=== PATIENT | female | born 1945 | race Caucasian/White ===

== ENCOUNTER 2017-06-23 12:20 | Emergency (ER) | payer MEDICARE, OTHER ==
--- NOTE | 2017-06-23 12:42 | EDM.PDOC ---
ED HPI GENERAL MEDICAL PROBLEM - General Source of Information: Reports: Patient History Limitations: Reports: No Limitations Headache Pain Score (Numeric/FACES): 6 - General Chief Complaint: Head Injury Stated Complaint: FACIAL INJURIES SUSTAINED FROM FALL Time Seen by Provider: 06/23/17 12:41 - History of Present Illness INITIAL COMMENTS - FREE TEXT/NARRATIVE: Patient is a 72-year-old female presents ED complaining of left-sided facial pain and cervical pain secondary to a fall earlier today. 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 Patient was sitting in her lift chair and accidentally dropped the remote on the floor. Patient was attempting to grab it and fell forward hitting her face. There was no loss of consciousness. Patient remembers all events prior and after. She was assisted up by her via lift belt. She complains of generalized headache described as mild to moderate in nature. No new vision changes. She does have decreased range of motion of the neck secondary to pain. Denies any chest pain, shortness of breath, nausea/vomiting, numbness or tingling to extremities, abdominal pain, pain to the upper and lower extremities, or any additional complaints. (Charlie Lafleur) - Related Data Allergies Allergy/AdvReac Type Severity Reaction Status Date / Time No Known Allergies Allergy Verified 06/23/17 12:39 Home Meds: Home Meds Albuterol [Ventolin HFA] 1 puff INH Q4HR PRN 06/23/17 [History] Amantadine [Symmetrel] 100 mg PO BID 06/23/17 [History] Aspirin [Halfprin] 81 mg PO DAILY 06/23/17 [History] Carboxymethylcellulose Sodium [Refresh Tears] 1 drop EYEBOTH TID 06/23/17 [ History] [place]/Min Oil/Mitali/Wool Alcoh [Eucerin Creme] 1 applic TOP DAILY 06/23/17 [ History] Latanoprost [Xalatan 0.005% Ophth Soln] 1 drop EYEBOTH DAILY 06/23/17 [History] Lisinopril 40 mg PO DAILY 06/23/17 [History] Meloxicam [Meloxicam] 7.5 mg PO DAILY 06/23/17 [History] Metoprolol Succinate 50 mg PO DAILY 06/23/17 [History] Nitrofurantoin [place]/Macrocryst [Macrobid] 100 mg PO DAILY 06/23/17 [History] Omeprazole 20 mg PO DAILY 06/23/17 [History] Triamcinolone Acetonide [Triamcinolone Acetonide 0.1% Crm] 1 applicful TOP ASDIRECTED PRN 06/23/17 [History] Venlafaxine [Effexor] 37.5 mg PO DAILY 06/23/17 [History] amLODIPine [Norvasc] 5 mg PO DAILY 06/23/17 [History] traMADol [Ultram] 50 mg PO Q8H PRN 06/23/17 [History] ED ROS GENERAL - Review of Systems Review Of Systems: ROS reveals no pertinent complaints other than HPI. ED EXAM, HEAD INJURY - Physical Exam Exam: See Below Exam Limited By: No Limitations General Appearance: Alert, WD/WN, No Apparent Distress Head: Other (Approximately 3 cm deep laceration to the left eyebrow with mild swelling to the left forehead extending down to her mandible. Skin tears present. Minimal bleeding. Mild tenderness noted with palpation of the zygomatic arch, maxilla, and also mandible. She has no trismus present.) Nexus Criteria: No: Evidence of Intoxication, Altered Level of Consciousness, Focal Neurological Deficit, Painful Distraction Injuries Eyes: Bilateral Eye: EOMI, PERRL Ears: Normal External Exam, Hearing Grossly Normal Nose: Normal Inspection, Normal Mucousa, No Blood Throat/Mouth: Normal Voice, No Airway Compromise Neck: Painful Range of Motion, Spinous Processes Tender, Tender Midline Respiratory: No Respiratory Distress, Lungs Clear, Normal Breath Sounds, No Accessory Muscle Use, Chest Non-Tender Cardiovascular: Normal Peripheral Pulses, Regular Rate, Rhythm GI/Abdominal Exam: Normal Bowel Sounds, Soft, Non-Tender, No Organomegaly, No Distention Back Exam: Normal Inspection Extremities: Normal Inspection, Normal Range of Motion, Non-Tender, Normal Capillary Refill, Pedal Edema (Trace bilateral) Neurologic: day guard II-XII nml As Tested, No Motor/Sensory Deficits, Alert, Normal Mood/Affect, Oriented x 3 Skin: Normal Color, Warm/Dry ED LACERATION/WOUND & DERRICK PROC - Laceration/Wound Repair Left Brow Lac/wound length in cm: 3.0 Appearance: Subcutaneous, Clean Distal NVT: Neuro & Vascular Intact Anesthetic Type: Local Local Anesthesia - Lidocaine (Xylocaine): 1% with EPI Local Anesthetic Volume: 4cc Skin Prep: Chlorhexidine (Hibiciens), Saline, Sterile Drape Exploration/Debridement/Repair: Wound Explored, In a Bloodless Field, Explored to Base, No Foreign Material Found Closed with: Sutures Suture Size: other (6.0) # of Sutures: 8 Suture Type: Prolene, Interrupted, Simple Drain Placement: No Sterile Dressing Applied: Nurse Tetanus Status Addressed: Yes Complications: No Left Face Lac/wound length in cm: 6 Appearance: Superficial, Clean Distal NVT: Neuro & Vascular Intact Exploration/Debridement/Repair: Wound Explored, In a Bloodless Field, Explored to Base, No Foreign Material Found Closed with: Steri-Strips Drain Placement: No Sterile Dressing Applied: Nurse Tetanus Status Addressed: Yes Complications: No Course - Vital Signs Last Recorded V/S: Last Vital Signs Temp 98.7 F 06/23/17 12:33 Pulse 68 06/23/17 16:00 Resp 16 06/23/17 16:00 BP 166/91 H 06/23/17 16:00 Pulse Ox 98 06/23/17 16:00 - Orders/Labs/Meds Labs: Laboratory Tests 06/23/17 Range/Units 15:20 Urine Color Light yellow (Yellow) Urine Appearance Cloudy H (Clear) Urine pH 7.0 (5.0-8.0) Ur Specific [place] 1.025 (1.005-1.030) Urine Protein Negative (Negative) Urine Glucose (UA) Negative (Negative) Urine Ketones Negative (Negative) Urine Occult Blood Negative (Negative) Urine Nitrite Negative (Negative) Urine Bilirubin Negative (Negative) Urine Urobilinogen 0.2 (0.2-1.0) Ur Leukocyte Esterase 1+ H (Negative) Urine RBC 0-5 (0-5) /hpf Urine WBC 10-20 H (0-5) /hpf Ur Epithelial Cells 0-5 (0-5) /hpf Urine Bacteria Many H (FEW) /hpf Urine Mucus Not seen (FEW) /hpf Meds: Medications Discontinued Medications Generic Name Dose Route Start Last Admin Trade Name Freq PRN Reason Stop Dose Admin Clotrimazole 1 gm 06/23/17 15:36 06/23/17 16:10 Clotrimazole 1% VAG 06/23/17 15:37 Not Given ONETIME ONE Diphtheria/Tetanus/Acell Pertussis 0.5 ml 06/23/17 14:04 06/23/17 15:00 Adacel IM 06/23/17 14:05 0.5 ml .ONCE ONE Administration Lidocaine/Epinephrine 20 ml 06/23/17 12:56 06/23/17 13:34 Xylocaine 1% With Epinephrine 1:100,000 INJECT 06/23/17 12:57 20 ml ONETIME ONE Administration - Re-Assessments/Exams Free Text/Narrative Re-Assessment/Exam: Will obtain CT of the cervical spine, head, maxillofacial bones without contrast. Ordered lidocaine with epi 1% for laceration closure. CT of the head impression: Minimal sinus findings which are felt to be incidental. Mild senescent changes as noted above. No acute intracranial abnormality is identified. 06/23/17 14:46 CT of the cervical spine impression: Diffuse degenerative changes noted above. Nothing acute is appreciated on CT study of the cervical spine. CT of the maxillofacial bones impression: Incidental findings as noted above. No acute bone facial bone fractures seen. Lacerations closed with no complications. We'll discharge patient home with instructions as documented. 06/23/17 15:04 per nursing staff patient to get up and go to the bathroom and the urine was foul-smelling. Patient is on Macrobid every day. Concerned that patient has a UTI that is not resolving. Will obtain UA via in and out catheter. Cultures will be obtained. 06/23/17 16:08 UA is positive for leukocyte Estrace 1+, urine wbc's 10-20, urine bacteria many. Urine culture has been obtained. Will hold off on starting any new antibiotics for urinary tract infection until culture comes back. Patient will be notified with treatment plan. Discharge instructions as documented. (Charlie Lafleur) Free Text/Narrative Re-Assessment/Exam: 06/26/17 11:42 Her urine culture is growing out E-coli susceptible to all the antibiotics tested. I called the patient to let her know and I will call in a prescription for macrobid 2 times per day for 5 days. (Landon Galvan) Departure - Departure Time of Disposition: 14:57 Condition: Good - Departure Disposition: Home, Self-Care 01 Clinical Impression: Cervical pain (neck), Yeast infection involving the vagina and surrounding area Facial trauma Qualifiers: Encounter type: initial encounter Qualified Code(s): S09.93XA - Unspecified injury of face, initial encounter Face lacerations Qualifiers: Encounter type: initial encounter Qualified Code(s): S01.81XA - Laceration without foreign body of other part of head, initial encounter Headache Qualifiers: Headache type: unspecified Headache chronicity pattern: acute headache Intractability: not intractable Qualified Code(s): R51 - Headache UTI (urinary tract infection) Qualifiers: Urinary tract infection type: site unspecified Hematuria presence: without hematuria Qualified Code(s): N39.0 - Urinary tract infection, site not specified - Discharge Information Instructions: Head Injury, Adult, [id number] Referrals: Darline Caal PA [Primary Care Provider] - Forms: ED Department Discharge Additional Instructions: As discussed CT of the head, neck, and facial bones did not reveal any acute bony abnormalities. Degenerative changes noted. Laceration of the left eyebrow closed with simple sutures. Sutures come out and approximate 7 days. Cleanse site twice daily with soap and water, pat dry, reapply triple antibiotic ointment, and dressing. Keep area clean and dry. Steri-Strips to the superficial laceration will follow up on their own accord. Follow-up with a provider at [facility], [place], operated by [facility] and [place] to have the sutures removed free of charge. Apply ice to affected area as needed. Utilize Tylenol and ibuprofen in alternating fashion for pain. Return to the ED for any new or worsening symptoms. In addition UA did reveal findings concerning for infection. Culture has been obtained. No treatment will be started until urine culture determines what bacteria is present. Continue taking the Macrobid as prescribed until told otherwise. In addition apply Lamisil to the vaginal area twice a day for the next 10 days. Keep area clean and dry. Follow-up with PCP in the next week for reevaluation.
[2017-06-23] MEDS ORDERED: Lidocaine 1% with EPINEPHrine 1:100,000 20 ML MDV INJECT ONE (12:56)
--- NOTE | 2017-06-23 13:57 | CT ---
CT facial bones Technique: Multiple axial sections through the facial bones were obtained. Reconstructed coronal and sagittal images were reviewed. Findings: Slight mucosal thickening is seen within the ethmoid and left maxillary sinus. No air-fluid levels are seen within the paranasal sinuses. Degenerative change is noted within the temporomandibular joints. No facial bone fracture is identified. Impression: 1. Incidental findings as noted above. No acute facial bone fracture is seen. Diagnostic code #1
--- NOTE | 2017-06-23 13:59 | CT ---
Head CT Technique: Multiple axial sections through the brain were obtained. Intravenous contrast was not utilized. Comparison: Previous head CT study of 10/31/13. Findings: Ventricles along the basal cisterns and sulci with convexities are moderately prominent. Minimal diminished density within the periventricular white matter is seen compatible with small vessel ischemic demyelination change. No other abnormal parenchymal densities are seen. No evidence of intracranial hemorrhage. No midline shift or mass effect is seen. Bone window settings were reviewed which shows no acute calvarial abnormality. Mild mucosal thickening is seen within the ethmoid sinuses. Impression: 1. Minimal sinus findings which are felt to be incidental. 2. Mild senescent changes as noted above. 3. No acute intracranial abnormality is identified. Diagnostic code #2
[2017-06-23] MEDS ORDERED: Diphtheria,Pertussis(Acell),Tetanus Vaccine 0.5 ML SDV IM ONE (14:04)
--- NOTE | 2017-06-23 14:11 | CT ---
CT cervical spine Technique: Multiple axial sections were obtained from above C1 inferiorly to the bottom of T1. Reconstructed sagittal and coronal images were obtained. Findings: Severe disc space narrowing is noted at C4-5 through C6-7. Anterior osteophytes seen at these same levels. Posterior osteophytes are seen at these same level as well as mild posterior osteophytes at C3-4. Degenerative change is noted between the dens anterior arch of C1. Mild scattered degenerative change is seen within the apophyseal joints. Severe left-sided neural foraminal stenosis noted at L3-4. Severe left-sided neural foraminal stenosis noted C4-5 on the left side with mild right-sided neural foraminal stenosis noted on the right side. Moderate right-sided neural foraminal stenosis noted in the right side at C5-6. Other neural foramina are felt to be patent. No abnormal subluxation is seen. No fracture is seen. Diffuse degenerative spurring is seen within the uncovertebral joints throughout the cervical spine. Impression: 1. Diffuse degenerative change as noted above. 2. Nothing acute is appreciated on CT study of the cervical spine. Diagnostic code #2
[2017-06-23] MEDS ORDERED: Clotrimazole 1% Vaginal Crm 45 GM Tube VAG ONE (15:36)
[2017-06-23 18:32] VITALS: BP 166/91
== END 2017-06-23 16:20 | disposition home or self-care (01) ==
LOC: JD.ED 12:20
DX: S01.81XA Laceration without foreign body of other part of head, initial encounter (principal); N39.0 Urinary tract infection, site not specified; B37.3 Candidiasis of vulva and vagina; Z79.82 Long term (current) use of aspirin; Z79.899 Other long term (current) drug therapy; Z23 Encounter for immunization; W19.XXXA Unspecified fall, initial encounter
CPT/HCPCS: 12013; 70450; 70486; 72125; 81001; 87086; 87088; 87186; 90471; 90715; 99285; P9612; 12015; 12032; 99284

== ENCOUNTER 2017-12-22 20:25 | Emergency (ER) | payer MEDICARE, OTHER ==
[2017-12-22 20:31] VITALS: BP 161/101
--- NOTE | 2017-12-22 20:55 | EDM.PDOC ---
ED HPI GENERAL MEDICAL PROBLEM - General Chief Complaint: Respiratory Problem Stated Complaint: CHOKING Time Seen by Provider: 12/22/17 20:39 Source of Information: Reports: Patient History Limitations: Reports: No Limitations - History of Present Illness INITIAL COMMENTS - FREE TEXT/NARRATIVE: Patient is a 72 y/o female with history of progressive supra nuclear palsy. Patient has issues with her vision, coordination, strength, and swallowing. Patient has intermittent issues with choking on food normally able to cough it up. states the patient was eating popcorn and started to choke. She was unable to get the popcorn out and thus prompted evaluation in the E.D. Patient has had the sensation of food in the back of her throat. She as drooling with driving to the E.D. She denies any pain to her throat, SOB, cp, or any additional complaints. Patients vital signs are stable. - Related Data Allergies Allergy/AdvReac Type Severity Reaction Status Date / Time No Known Allergies Allergy Verified 06/23/17 12:39 Home Meds: Home Meds Amantadine [Symmetrel] 100 mg PO BID 06/23/17 [History] Aspirin [Halfprin] 81 mg PO DAILY 06/23/17 [History] Carboxymethylcellulose Sodium [Refresh Tears] 1 drop EYEBOTH TID 06/23/17 [ History] [place]/Min Oil/Mitali/Wool Alcoh [Eucerin Creme] 1 applic TOP DAILY 06/23/17 [ History] Latanoprost [Xalatan 0.005% Ophth Soln] 1 drop EYEBOTH DAILY 06/23/17 [History] Lisinopril 40 mg PO DAILY 06/23/17 [History] Metoprolol Succinate 50 mg PO DAILY 06/23/17 [History] Venlafaxine [Effexor] 37.5 mg PO DAILY 06/23/17 [History] amLODIPine [Norvasc] 5 mg PO DAILY 06/23/17 [History] Lansoprazole [Prevacid] 1 tab PO DAILY 12/22/17 [History] Loratadine [Claritin] 10 mg PO DAILY PRN 12/22/17 [History] Timolol [Betimol 0.5% Ophth Soln] 1 drop EYEBOTH DAILY 12/22/17 [History] Past Medical History Cardiovascular History: Reports: Hypertension Respiratory History: Reports: Sleep Apnea, SOB Gastrointestinal History: Reports: None Genitourinary History: Reports: Urinary Incontinence 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 MAN 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: 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: Musculoskeletal History: Reports: Fracture Neurological History: Reports: Other (See Below) Other Neuro History: progressive supranuclear palsy- form of parkinson's - Past Surgical History GI Surgical History: Reports: Colonoscopy Musculoskeletal Surgical History: Reports: Knee Replacement Other Musculoskeletal Surgeries/Procedures:: arm surgery; bilateral knkee replacement Social & Family History - Family History Family Medical History: Noncontributory - Tobacco Use Smoking Status *Q: Never Smoker - Caffeine Use Caffeine Use: Reports: Coffee - Recreational Drug Use Recreational Drug Use: No ED ROS GENERAL - Review of Systems Review Of Systems: ROS reveals no pertinent complaints other than HPI. Constitutional: Reports: No Symptoms HEENT: Reports: No Symptoms Respiratory: Reports: No Symptoms Cardiovascular: Reports: No Symptoms GI/Abdominal: Reports: No Symptoms Musculoskeletal: Denies: Neck Pain ED EXAM, GENERAL - Physical Exam Exam: See Below Exam Limited By: Other (patient is able to speak. she is alert and orientedx3.) General Appearance: Alert, WD/WN, No Apparent Distress Ears: Hearing Grossly Normal Nose: Normal Inspection Throat/Mouth: Normal Inspection, Normal Oropharynx, Normal Voice, No Airway Compromise, Other (no popcorn noted to the posterior pharynx. gag reflex noted with application of tongue depressor) Neck: Normal Inspection, Supple, Non-Tender Respiratory/Chest: No Respiratory Distress, Lungs Clear, Normal Breath Sounds, No Accessory Muscle Use Cardiovascular: Normal Peripheral Pulses, Regular Rate, Rhythm Peripheral Pulses: 4+: Radial (R) GI/Abdominal: Normal Bowel Sounds, Soft, Non-Tender, No Organomegaly, No Distention Neurological: Alert, Oriented, Normal Cognition, Slow to Respond (normal) Psychiatric: Normal Affect, Normal Mood, Other (no change in mentation per . ) Skin Exam: Warm, Dry Course - Vital Signs Last Recorded V/S: Last Vital Signs Temp 97.0 F 12/22/17 20:30 Pulse 75 12/22/17 20:30 Resp 20 12/22/17 20:30 BP 161/101 H 12/22/17 20:30 Pulse Ox 98 12/22/17 20:30 - Orders/Labs/Meds Orders: Active Orders 24 hr Category Date Time Status Peripheral IV Care [RC] . DIRECTED Care 12/22/17 22:53 Inactive Meds: Medications Discontinued Medications Generic Name Dose Route Start Last Admin Trade Name Jeetq PRN Reason Stop Dose Admin Lorazepam 0.25 mg 12/22/17 22:53 Ativan IVPUSH 12/22/17 22:54 ONETIME ONE Lorazepam 0.5 mg 12/22/17 22:53 12/22/17 23:02 Ativan IM 12/22/17 22:54 0.5 mg ONETIME ONE Administration Sodium Chloride 10 ml 12/22/17 22:52 Saline Flush FLUSH ASDIRECTED PRN Keep Vein Open - Re-Assessments/Exams Free Text/Narrative Re-Assessment/Exam: Patients vitals are stable. She has no findings concerning for upper airway obstruction. When asked during examination and she has a sensation of food or saliva in her throat she says saliva. There is no pain present. No abnormalities noted on examination of the posterior pharynx. She is moving air with no concerning findings. She has no drooling with examination. She is able to swallow her saliva. No additional testing is required at this time. I did speak to Dr. Rasmussen. He does recommend close follow-up with PCP to which they can arrange evaluation by pulmonology to have a bronchoscopy if required. 2114 CXR obtained. Blouse buttons present. Will have detention remove the blouse and retake cxr. Patient did swallow some water with only minimal drooling. No choking present. 12/22/17 21:55CXR reviewed with Dr. Rasmussen. NO findings of atelectasis or obvious foreign object. Final interpretation is pending. Patient has been drinking water with no drooling. Patient's O2 sats did drop down to 60% without a good pleth. Patients O2 sats with 2lpm is 99 %. Will have nursing staff turn off o2. She was 95% on room air with admission. 2199 Patient was drinking water became very anxious complaining of food in the back of her throat. Blood pressure elevated with normal 02 sats on room air. She is moving good air. I did have nursing staff suction the posterior pharynx. 12/22/17 22:[address] West suggests transfer to [place] for ENT consultation. After suctioning of the posterior pharynx. Patient's blood pressure was 140/70 with O2 sats of 96%. Patients heart rate is 87. 12/22/17 22:56 on reexamination patient is not grunting O2 sats are 95% on room air pulse is 84. She does not appear in acute distress. Speaking with the . I advised her that that the patient does not have any upper airway obstruction. There is no whistling sound concerning for stridor. Patient remains to have episodes of increased anxiety, holds her breath, BP elevates, and O2 sats drop. Will go ahead with IM injection of Ativan 0.5 mg. See if this will help with her anxiety. Again upon admission to the ED patient was not hypertensive. With her increased anxiety grunting and clenching her fist patient is hypertensive. at [address] Nice ER doc at [facility]. He does not think ENT will come in to evaluate the patient. She does not sound like she has a upper airway obstruction. Agrees with plan for ativan to relax patient. Requests call back if any issues. 12/23/17 00:14 Patient resting comfortably in bed. Blood pressure 169/103 with a heart rate of 79 SPO2 of 94% on room air. She has no findings concerning for upper extraction. No stridor, no grunting, no drooling, or any concerning findings. 12/23/17 00:30 on reexamination patient resting comfortably. Blood pressure 175/ 90, heart rate 79, SPO2 96% on room air. When asking the patient if she has any food sensation to the back of her throat she says no. I asked the patient if she is ready to go home and she says yes. There is no stridor, grunting, or drooling. Patient is controlling her saliva with no issues. is ready to go home. Return precautions discussed with him and other family members present. Departure - Departure Time of Disposition: 20:58 Disposition: Home, Self-Care 01 Condition: Good Clinical Impression: Choking episode - Discharge Information Instructions: Choking, Adult Referrals: Darline Caal PA [Primary Care Provider] - Forms: ED Department Discharge Additional Instructions: Please followup with PCP in two days for reevaluation and to discuss the need for bronchoscopy. Suspect you did not aspirate the popcorn but cannot be sure of this. Continue to monitor for any new or worsening symptoms. If patient develops any concerning symptoms please return to the E.D. Call 911 if patient develops any respiratory issues and needs immediate care. - My Orders Last 24 Hours: My Active Orders 12/22/17 22:53 Peripheral IV Care [RC] . DIRECTED - Assessment/Plan Last 24 Hours: My Active Orders 12/22/17 22:53 Peripheral IV Care [RC] . DIRECTED
[2017-12-22] MEDS ORDERED: Sodium Chloride 0.9% 10 ML Syringe FLUSH PRN (22:52)
[2017-12-22] MEDS ORDERED: LORazepam 2 MG/ML SDV IVPUSH ONE (22:53)
[2017-12-22] MEDS ORDERED: LORazepam 2 MG/ML SDV IM ONE (22:53)
--- NOTE | 2017-12-23 08:11 | CR ---
Chest: Portable view of the chest was obtained. Comparison: Previous chest x-ray of 10/31/13. Tortuous thoracic aorta is seen. Heart size appears within normal limits. Lungs are clear. Bony structures are grossly intact. Impression: 1. Nothing acute is seen on portable chest x-ray. Diagnostic code #1
== END 2017-12-23 00:45 | disposition home or self-care (01) ==
LOC: SUPCPDRO 20:25 → JD.ED 20:25
DX: R09.89 Other specified symptoms and signs involving the circulatory and respiratory systems (principal); I10 Essential (primary) hypertension; Z79.82 Long term (current) use of aspirin; Z79.899 Other long term (current) drug therapy
CPT/HCPCS: 71045; 96372; 99283; J2060

== ENCOUNTER 2018-08-27 15:16 | Inpatient (IN) | payer MEDICARE, OTHER ==
[2018-08-27] MEDS ORDERED: Sodium Chloride 0.9% 1,000 ML IV ONE ×3 (16:26→18:49)
[2018-08-27] MEDS ORDERED: Sodium Chloride 0.9% 10 ML Syringe FLUSH PRN (16:26)
[2018-08-27] MEDS ORDERED: Ondansetron 4 MG/2 ML SDV IVPUSH ONE (16:32)
[2018-08-27] MEDS ORDERED: cefTRIAXone 2 GM in Sodium Chloride 0.9% 100 ML IV STA (17:26)
--- NOTE | 2018-08-27 19:05 | EDM.PDOC ---
ED HPI GENERAL MEDICAL PROBLEM - General Chief Complaint: Gastrointestinal Problem Stated Complaint: VOMITING Time Seen by Provider: 08/27/18 16:05 Source of Information: Reports: Family History Limitations: Reports: Physical Impairment - History of Present Illness INITIAL COMMENTS - FREE TEXT/NARRATIVE: 73-year-old female presents with her and her daughter for evaluation treatment of vomiting. Patient has a past mental history of progressive supranuclear palsy, she is unable to provide any reliable history. History is obtained from her and her daughter. Patient [place] outside [facility]. Reportedly the patient started feeling unwell yesterday. Vomited one time yesterday, has not vomited all today. Also reports a cough and states that she has felt warm but did not check her temperature. She has been diaphoretic. No diarrhea. Reportedly she is not complaining of anything. She is more weak than normal. She is unable to walk and normally transfers with a gait belt and uses a wheelchair. They have appreciated that she is more weak and has difficulty standing on her own. Reportedly she had swallow, labored breathing last night. Family denies any recent falls. patient has a history of difficulty with swallowing. She normally drinks thickened liquids and soft foods. They report that she has not been eating or drinking as much is normal. She had only a small amount of boost and a few bites of applesauce today. Patient is a DNR, DNI. Primary care provider is Darline Caal. Abdomen Pain Score (Numeric/FACES): 4 - Related Data Allergies Allergy/AdvReac Type Severity Reaction Status Date / Time wheat Allergy Cannot Verified 07/20/18 09:14 Remember Home Meds: Home Meds Aspirin [Halfprin] 81 mg PO DAILY 06/23/17 [History] Carboxymethylcellulose Sodium [Refresh Tears] 1 drop EYEBOTH TID 06/23/17 [ History] [place]/Min Oil/Mitali/Wool Alcoh [Eucerin Creme] 1 applic TOP DAILY 06/23/17 [ History] Latanoprost [Xalatan 0.005% Ophth Soln] 1 drop EYEBOTH BEDTIME 06/23/17 [History ] Lisinopril 40 mg PO DAILY 06/23/17 [History] Metoprolol Succinate 50 mg PO DAILY 06/23/17 [History] Venlafaxine [Effexor] 37.5 mg PO DAILY 06/23/17 [History] Timolol [Betimol 0.5% Ophth Soln] 1 drop EYEBOTH DAILY 12/22/17 [History] Amantadine [Symmetrel 50 MG/5 ML Soln] 10 ml PO Q12H 08/27/18 [History] Past Medical History Cardiovascular History: Reports: Hypertension Respiratory History: Reports: Sleep Apnea, SOB Gastrointestinal History: Reports: None Genitourinary History: Reports: Urinary Incontinence 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: Musculoskeletal History: Reports: Fracture Neurological History: Reports: Other (See Below) Other Neuro History: progressive supranuclear palsy- form of parkinson's - Past Surgical History GI Surgical History: Reports: Colonoscopy Musculoskeletal Surgical History: Reports: Knee Replacement Other Musculoskeletal Surgeries/Procedures:: arm surgery; bilateral knkee replacement Social & Family History - Family History Family Medical History: Noncontributory - Tobacco Use Smoking Status *Q: Never Smoker - Caffeine Use Caffeine Use: Reports: None - Recreational Drug Use Recreational Drug Use: No ED ROS GENERAL - Review of Systems Review Of Systems: See Below Constitutional: Reports: Weakness, Decreased Appetite. Denies: Fever Respiratory: Reports: Cough GI/Abdominal: Reports: Vomiting. Denies: Diarrhea ED EXAM, GI/ABD - Physical Exam Exam: See Below Exam Limited By: No Limitations General Appearance: Alert, No Apparent Distress, Other (chronically ill appearing) Ears: Normal External Exam Nose: Normal Inspection Throat/Mouth: Normal Inspection, Other (dry lips and dry mucus membranes) Respiratory/Chest: No Respiratory Distress, Crackles (bilateral lung bases) Cardiovascular: Normal Peripheral Pulses, Regular Rate, Rhythm, No Murmur GI/Abdominal Exam: Soft, Non-Tender Neurological: Alert Skin Exam: Dry, Increased Warmth EKG INTERPRETATION EKG Date: 08/27/18 Time: 16:41 Rhythm: NSR Rate (Beats/Min): 96 Riddle: Normal P-Wave: Present QRS: Normal ST-T: Normal QT: Normal EKG Interpretation Comments: NSR at 96 bpm. No acute changes. Reviewed by myself and Dr. Poe. Course - Vital Signs Last Recorded V/S: Last Vital Signs Temp 98.0 F 08/27/18 15:50 Pulse 98 08/27/18 15:50 Resp 20 08/27/18 15:50 BP 129/85 01/05/19 15:50 Pulse Ox 95 08/27/18 15:50 - Orders/Labs/Meds Orders: Active Orders 24 hr Category Date Time Status Cardiac Monitoring [RC] . DIRECTED Care 08/27/18 16:31 Active EKG Documentation Completion [RC] ASDIRECTED Care 08/27/18 16:31 Active Peripheral IV Care [RC] . DIRECTED Care 08/27/18 16:30 Active Chest 1V Frontal [CR] Stat Exams 08/27/18 16:31 Taken CULTURE BLOOD [BC] Stat Lab 08/27/18 16:45 Received CULTURE BLOOD [BC] Stat Lab 08/27/18 16:55 Received CULTURE URINE [RM] Stat Lab 08/27/18 18:20 Received Sodium Chloride 0.9% [Saline Flush] Med 08/27/18 16:26 Active 10 ml FLUSH ASDIRECTED PRN Blood Culture x2 Reflex Set [OM.PC] Stat Oth 08/27/18 16:26 Ordered Peripheral IV Insertion Adult [OM.PC] Routine Oth 08/27/18 16:25 Ordered EKG 12 Lead [EK] Stat Ther 08/27/18 16:31 Ordered Medication Orders Acetaminophen (Tylenol) 650 mg PO Q6H PRN PRN Reason: Pain/Fever Albuterol (Proventil Neb Soln) 2.5 mg NEB Q4HRRT PRN PRN Reason: Shortness of Breath Albuterol/Ipratropium (Duoneb 3.0-0.5 Mg/3 Ml) 3 ml NEB QIDRT [place] Amantadine HCl (Symmetrel 50 Mg/5 Ml Soln) 100 mg PO Q12H [facility] Artificial Tears (Refresh Liquigel 1%) 0 ml EYEBOTH TID [facility] Last Admin: 08/27/18 20:56 Dose: 1 drop Aspirin (Halfprin) 81 mg PO DAILY [facility] Enoxaparin Sodium (Lovenox) 40 mg SUBCUT Q24H [facility] Last Admin: 08/27/18 20:56 Dose: 40 mg Azithromycin 500 mg/ Sodium (Chloride) 250 mls @ 250 mls/hr IV Q24H [facility] Ceftriaxone Sodium 2 gm/ (Sodium Chloride) 100 mls @ 200 mls/hr IV Q24H [facility] Sodium Chloride (Normal Saline) 1,000 mls @ 150 mls/hr IV ASDIRECTED [facility] Stop: 08/28/18 05:00 Last Admin: 08/27/18 21:09 Dose: 150 mls/hr Sodium Chloride (Normal Saline) 1,000 mls @ 75 mls/hr IV ASDIRECTED [place] Latanoprost (Xalatan 0.005% Ophth Soln) 0 ml EYEBOTH BEDTIME [place] Last Admin: 08/27/18 20:56 Dose: 1 drop Metoprolol Succinate (Toprol Xl) 25 mg PO DAILY [facility] Ondansetron HCl (Zofran) 4 mg IVPUSH Q8H PRN PRN Reason: Nausea/Vomiting Sodium Chloride (Saline Flush) 10 ml FLUSH ASDIRECTED PRN PRN Reason: Keep Vein Open Last Admin: 08/27/18 16:48 Dose: 10 ml Timolol Maleate (Timoptic 0.5% Ophth Soln) 0 ml EYEBOTH DAILY [facility] Labs: Laboratory Tests 08/27/18 08/27/18 08/27/18 Range/Units 16:45 16:45 16:45 WBC 16.57 H (3.98-10.04) K/mm3 RBC 4.36 (3.98-5.22) M/mm3 Hgb 12.3 (11.2-15.7) gm/L Hct 38.1 (34.1-44.9) % MCV 87.4 (79.4-94.8) fl MCH 28.2 (25.6-32.2) pg MCHC 32.3 (32.2-35.5) g/dl RDW Std Deviation 45.9 (36.4-46.3) fL Plt Count 215 (182-369) K/mm3 MPV Not Reportable Neutrophils % (Manual) 77 H (40-60) % Band Neutrophils % 0 (0-10) % Lymphocytes % (Manual) 17 L (20-40) % Atypical Lymphs % 0 % Monocytes % (Manual) 2 (2-10) % Eosinophils % (Manual) 2 (0.7-5.8) % Basophils % (Manual) 2 H (0.1-1.2) Toxic Granulation Few Platelet Estimate Adequate Plt Morphology Comment See note RBC Morph Comment Normal Sodium 137 (136-145) mEq/L Potassium 4.2 (3.5-5.1) mEq/L Chloride 99 (98-107) mEq/L Carbon Dioxide 30 (21-32) mEq/L Anion Gap 12.2 (5-15) BUN 21 H (7-18) mg/dL Creatinine 0.8 (0.55-1.02) mg/dL Est Cr Clr Drug Dosing 62.72 mL/min Estimated GFR (MDRD) > 60 (>60) mL/min BUN/Creatinine Ratio 26.3 H (14-18) Glucose 117 H (83-115) mg/dL Lactic Acid 0.8 (0.4-2.0) mmol/L Calcium 9.4 (8.5-10.1) mg/dL Magnesium (1.8-2.4) mg/dl Total Bilirubin 0.9 (0.2-1.0) mg/dL AST 65 H (15-37) U/L ALT 79 H (14-59) U/L Alkaline Phosphatase 88 (46-116) U/L C-Reactive Protein 15.9 H* (<1.0) mg/dL Total Protein 7.9 (6.4-8.2) g/dl Albumin 2.8 L (3.4-5.0) g/dl Globulin 5.1 gm/dL Albumin/Globulin Ratio 0.6 L (1-2) Urine Color (Yellow) Urine Appearance (Clear) Urine pH (5.0-8.0) Ur Specific [place] (1.005-1.030) Urine Protein (Negative) Urine Glucose (UA) (Negative) Urine Ketones (Negative) Urine Occult Blood (Negative) Urine Nitrite (Negative) Urine Bilirubin (Negative) Urine Urobilinogen (0.2-1.0) Ur Leukocyte Esterase (Negative) Urine RBC (0-5) /hpf Urine WBC (0-5) /hpf Ur Epithelial Cells (0-5) /hpf Urine Bacteria (FEW) /hpf Urine Mucus (FEW) /hpf Mycoplasma pneumon IgM Negative (NEGATIVE) 08/27/18 08/27/18 Range/Units 16:45 18:20 WBC (3.98-10.04) K/mm3 RBC (3.98-5.22) M/mm3 Hgb (11.2-15.7) gm/L Hct (34.1-44.9) % MCV (79.4-94.8) fl MCH (25.6-32.2) pg MCHC (32.2-35.5) g/dl RDW Std Deviation (36.4-46.3) fL Plt Count (182-369) K/mm3 MPV Neutrophils % (Manual) (40-60) % Band Neutrophils % (0-10) % Lymphocytes % (Manual) (20-40) % Atypical Lymphs % % Monocytes % (Manual) (2-10) % Eosinophils % (Manual) (0.7-5.8) % Basophils % (Manual) (0.1-1.2) Toxic Granulation Platelet Estimate Plt Morphology Comment RBC Morph Comment Sodium (136-145) mEq/L Potassium (3.5-5.1) mEq/L Chloride (98-107) mEq/L Carbon Dioxide (21-32) mEq/L Anion Gap (5-15) BUN (7-18) mg/dL Creatinine (0.55-1.02) mg/dL Est Cr Clr Drug Dosing mL/min Estimated GFR (MDRD) (>60) mL/min BUN/Creatinine Ratio (14-18) Glucose (83-115) mg/dL Lactic Acid (0.4-2.0) mmol/L Calcium (8.5-10.1) mg/dL Magnesium 2.2 (1.8-2.4) mg/dl Total Bilirubin (0.2-1.0) mg/dL AST (15-37) U/L ALT (14-59) U/L Alkaline Phosphatase (46-116) U/L C-Reactive Protein (<1.0) mg/dL Total Protein (6.4-8.2) g/dl Albumin (3.4-5.0) g/dl Globulin gm/dL Albumin/Globulin Ratio (1-2) Urine Color Yellow (Yellow) Urine Appearance Cloudy H (Clear) Urine pH 7.0 (5.0-8.0) Ur Specific [place] 1.020 (1.005-1.030) Urine Protein 2+ H (Negative) Urine Glucose (UA) Negative (Negative) Urine Ketones Negative (Negative) Urine Occult Blood 1+ H (Negative) Urine Nitrite Negative (Negative) Urine Bilirubin Negative (Negative) Urine Urobilinogen 0.2 (0.2-1.0) Ur Leukocyte Esterase 3+ H (Negative) Urine RBC 5-10 H (0-5) /hpf Urine WBC 40-50 H (0-5) /hpf Ur Epithelial Cells 10-20 H (0-5) /hpf Urine Bacteria Many H (FEW) /hpf Urine Mucus Few (FEW) /hpf Mycoplasma pneumon IgM (NEGATIVE) Meds: Medications Generic Name Dose Route Start Last Admin Trade Name Freq PRN Reason Stop Dose Admin Acetaminophen 650 mg 08/27/18 20:33 Tylenol PO Q6H PRN Pain/Fever Albuterol 2.5 mg 08/27/18 20:05 Proventil Neb Soln NEB Q4HRRT PRN Shortness of Breath Albuterol/Ipratropium 3 ml 08/27/18 21:00 Duoneb 3.0-0.5 Mg/3 Ml NEB QIDRT [place] Amantadine HCl 100 mg 08/27/18 19:30 Symmetrel 50 Mg/5 Ml Soln PO Q12H [place] Artificial Tears 0 ml 08/27/18 21:00 08/27/18 20:56 Refresh Liquigel 1% EYEBOTH 1 drop TID [place] Administration Aspirin 81 mg 08/28/18 09:00 Halfprin PO DAILY [place] Enoxaparin Sodium 40 mg 08/27/18 21:00 08/27/18 20:56 Lovenox SUBCUT 40 mg Q24H [place] Administration Azithromycin 500 mg/ Sodium 250 mls @ 250 mls/hr 08/27/18 23:00 Chloride IV Q24H [place] Ceftriaxone Sodium 2 gm/ 100 mls @ 200 mls/hr 08/28/18 18:00 Sodium Chloride IV Q24H [place] Sodium Chloride 1,000 mls @ 150 mls/hr 08/27/18 21:00 08/27/18 21:09 Normal Saline IV 08/28/18 05:00 150 mls/hr ASDIRECTED [place] Administration Sodium Chloride 1,000 mls @ 75 mls/hr 08/28/18 05:00 Normal Saline IV ASDIRECTED [place] Latanoprost 0 ml 08/27/18 21:00 08/27/18 20:56 Xalatan 0.005% Ophth Soln EYEBOTH 1 drop BEDTIME [place] Administration Metoprolol Succinate 25 mg 08/28/18 09:00 Toprol Xl PO DAILY [place] Ondansetron HCl 4 mg 08/27/18 20:07 Zofran IVPUSH Q8H PRN Nausea/Vomiting Sodium Chloride 10 ml 08/27/18 16:26 08/27/18 16:48 Saline Flush FLUSH 10 ml ASDIRECTED PRN Administration Keep Vein Open Timolol Maleate 0 ml 08/28/18 09:00 Timoptic 0.5% Ophth Soln EYEBOTH DAILY [place] Discontinued Medications Generic Name Dose Route Start Last Admin Trade Name Freq PRN Reason Stop Dose Admin Sodium Chloride 1,000 mls @ 999 mls/hr 08/27/18 16:26 08/27/18 16:45 Normal Saline IV 08/27/18 17:26 999 mls/hr ONETIME ONE Administration Ceftriaxone Sodium 2 gm/ 100 mls @ 200 mls/hr 08/27/18 17:26 08/27/18 18:16 Sodium Chloride IV 08/27/18 17:55 200 mls/hr NOW STA Administration Sodium Chloride 1,000 mls @ 125 mls/hr 08/27/18 18:15 08/27/18 20:56 Normal Saline IV 08/28/18 02:14 Not Given ONETIME ONE Sodium Chloride 1,000 mls @ 999 mls/hr 08/27/18 18:49 08/27/18 19:01 Normal Saline IV 08/27/18 19:49 999 mls/hr ONETIME ONE Administration Metoprolol Succinate 50 mg 08/28/18 09:00 Toprol Xl PO DAILY [place] Ondansetron HCl 4 mg 08/27/18 16:32 08/27/18 16:46 Zofran IVPUSH 08/27/18 16:33 4 mg ONETIME ONE Administration - Radiology Interpretation Free Text/Narrative:: 1 view chest xray impression per vrad: right lower lung scarring versus subsegmental atelectasis - Re-Assessments/Exams Free Text/Narrative Re-Assessment/Exam: 08/27/18 18:41 Influenza returned negative. I reviewed the labs, EKG and imaging with the patient and her family. I do suspect a pneumonia in the right lower lobe. Blood and urine cultures are pending. I do not feel that she is well enough to go home and recommended admission. Family is agreeable to this. state that she is a DNR/DNI. I did discuss with her possibly alf placement and they are hesitant at this time. I did advise him that secondary social studies teacher would likely see them during her hospitalization to possibly discuss alf care for her. Case discussed with Dr. Figueroa, hospice on-call. She has come to the ER and evaluated the patient. She agrees to the admission. Will admit MedSurg for pneumonia and a UTI. Departure - Departure Time of Disposition: 18:50 Disposition: Admitted As Inpatient 68 Condition: Serious Clinical Impression: Pneumonia UTI (urinary tract infection) Qualifiers: Urinary tract infection type: site unspecified Hematuria presence: without hematuria Qualified Code(s): N39.0 - Urinary tract infection, site not specified - Discharge Information *PRESCRIPTION DRUG MONITORING PROGRAM REVIEWED*: No *COPY OF PRESCRIPTION DRUG MONITORING REPORT IN PATIENT KRISTI: No - My Orders Last 24 Hours: My Active Orders 08/27/18 16:25 Peripheral IV Insertion Adult [OM.PC] Routine 08/27/18 16:26 Sodium Chloride 0.9% [Saline Flush] 10 ml FLUSH ASDIRECTED PRN Blood Culture x2 Reflex Set [OM.PC] Stat 08/27/18 16:30 Peripheral IV Care [RC] . DIRECTED 08/27/18 16:31 Cardiac Monitoring [RC] . DIRECTED EKG Documentation Completion [RC] ASDIRECTED Chest 1V Frontal [CR] Stat EKG 12 Lead [EK] Stat 08/27/18 16:45 CULTURE BLOOD [BC] Stat 08/27/18 16:55 CULTURE BLOOD [BC] Stat 08/27/18 18:20 CULTURE URINE [RM] Stat - Assessment/Plan Last 24 Hours: My Active Orders 08/27/18 16:25 Peripheral IV Insertion Adult [OM.PC] Routine 08/27/18 16:26 Sodium Chloride 0.9% [Saline Flush] 10 ml FLUSH ASDIRECTED PRN Blood Culture x2 Reflex Set [OM.PC] Stat 08/27/18 16:30 Peripheral IV Care [RC] . DIRECTED 08/27/18 16:31 Cardiac Monitoring [RC] . DIRECTED EKG Documentation Completion [RC] ASDIRECTED Chest 1V Frontal [CR] Stat EKG 12 Lead [EK] Stat 08/27/18 16:45 CULTURE BLOOD [BC] Stat 08/27/18 16:55 CULTURE BLOOD [BC] Stat 08/27/18 18:20 CULTURE URINE [RM] Stat
--- NOTE | 2018-08-27 19:26 | PCM.HP ---
H&P History of Present Illness - General Date of Service: 08/27/18 Admit Problem/Dx: Admission Diagnosis/Problem Admission Diagnosis/Problem Pneumonia Source of Information: Family, Provider History Limitations: Reports: No Limitations - History of Present Illness Initial Comments - Free Text/Narative: 73 year old female diagnosed at the [facility] with progressive supranuclear palsy presents with cough, malaise, SOB. There has been no known sick contacts , Influenza and Mycoplasma are negative. CXR documents RLL PNA. She has received Rocephin 2 gm in the ED. The patient resides at home with her . A PEG tube has been declined in the past. She recently saw her PCP in the late fall. A video swallow evaluation was done at that time which documented the need for a feeding tube. Family and friends were asked their opinion and her spouse eventually declined the PEG tube. Current diet is three Ensures and 32 ounces of water. She is being admitted to [place] with telemetry, and is DNR/DNI. Onset of Symptoms: Reports: Unknown/Unsure Symptom Onset Date: 08/25/18 Duration of Symptoms: Reports: Day(s):, Getting Worse Location: Reports: Chest, Generalized Severity: Moderate Improves with: Reports: Medication Worsens with: Reports: None Associated Symptoms: Reports: Cough, Loss of Appetite, Malaise, Nausea/Vomiting , Weakness Abdomen Pain Score (Numeric/FACES): 4 - Related Data Allergies/Adverse Reactions: Allergies Allergy/AdvReac Type Severity Reaction Status Date / Time wheat Allergy Cannot Verified 07/20/18 09:14 Remember Home Medications: Home Meds Aspirin [Halfprin] 81 mg PO DAILY 06/23/17 [History] Carboxymethylcellulose Sodium [Refresh Tears] 1 drop EYEBOTH TID 06/23/17 [ History] Mckenzie/Min Oil/Mitali/Wool Alcoh [Eucerin Creme] 1 applic TOP DAILY 06/23/17 [ History] Latanoprost [Xalatan 0.005% Ophth Soln] 1 drop EYEBOTH BEDTIME 06/23/17 [History ] Lisinopril 40 mg PO DAILY 06/23/17 [History] Venlafaxine [Effexor] 37.5 mg PO DAILY 06/23/17 [History] Timolol [Betimol 0.5% Ophth Soln] 1 drop EYEBOTH DAILY 12/22/17 [History] Amantadine [Symmetrel 50 MG/5 ML Soln] 10 ml PO Q12H 08/27/18 [History] Metoprolol Tartrate 25 mg PO BID 08/27/18 [History] Past Medical History Cardiovascular History: Reports: Hypertension Respiratory History: Reports: Sleep Apnea, SOB Gastrointestinal History: Reports: None Genitourinary History: Reports: Urinary Incontinence 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: Musculoskeletal History: Reports: Fracture Neurological History: Reports: Other (See Below) Other Neuro History: progressive supranuclear palsy- form of parkinson's - Past Surgical History GI Surgical History: Reports: Colonoscopy Musculoskeletal Surgical History: Reports: Knee Replacement Other Musculoskeletal Surgeries/Procedures:: arm surgery; bilateral knkee replacement Social & Family History - Family History Family Medical History: Noncontributory - Tobacco Use Smoking Status *Q: Never Smoker - Caffeine Use Caffeine Use: Reports: None - Recreational Drug Use Recreational Drug Use: No H&P Review of Systems - Review of Systems: Review Of Systems: See Below General: Reports: Malaise, Weakness, Decreased Appetite HEENT: Reports: No Symptoms Pulmonary: Reports: Cough Cardiovascular: Reports: No Symptoms Gastrointestinal: Reports: Decreased Appetite, Nausea, Vomiting Genitourinary: Reports: No Symptoms Musculoskeletal: Reports: No Symptoms Skin: Reports: No Symptoms Psychiatric: Reports: No Symptoms Neurological: Reports: No Symptoms Hematologic/Lymphatic: Reports: No Symptoms Immunologic: Reports: No Symptoms Exam - Exam Exam: See Below - Vital Signs Vital Signs: Last Vital Signs Temp 36.7 C 08/27/18 15:50 Pulse 98 08/27/18 15:50 Resp 20 08/27/18 15:50 BP 129/85 08/27/18 15:50 Pulse Ox 95 08/27/18 15:50 Weight: 82.1 kg - Exam Quality Assessment: DVT Prophylaxis General: Alert, Oriented HEENT: Hearing Intact, Nares Patent, Normal Nasal Septum, Pupils Equal, Pupils Reactive Neck: Trachea Midline Lungs: Normal Respiratory Effort, Decreased Breath Sounds Cardiovascular: Regular Rate GI/Abdominal Exam: Normal Bowel Sounds, Soft, Non-Tender, No Abnormal Bruit (Female) Exam: Deferred Rectal (Female) Exam: Deferred Back Exam: Normal Inspection Extremities: Pedal Edema, Slow Capillary Refill Skin: Warm Neuro Extensive - Mental Status: Alert Neuro Extensive - Motor, Sensory, Reflexes: Motor/Sensory Deficits Psychiatric: Alert - Patient Data Lab Results Last 24 hrs: Laboratory Results - last 24 hr 08/27/18 08/27/18 08/27/18 Range/Units 16:45 16:45 16:45 WBC 16.57 H (3.98-10.04) K/mm3 RBC 4.36 (3.98-5.22) M/mm3 Hgb 12.3 (11.2-15.7) gm/L Hct 38.1 (34.1-44.9) % MCV 87.4 (79.4-94.8) fl MCH 28.2 (25.6-32.2) pg MCHC 32.3 (32.2-35.5) g/dl RDW Std Deviation 45.9 (36.4-46.3) fL Plt Count 215 (182-369) K/mm3 MPV Not Reportable Neutrophils % (Manual) 77 H (40-60) % Band Neutrophils % 0 (0-10) % Lymphocytes % (Manual) 17 L (20-40) % Atypical Lymphs % 0 % Monocytes % (Manual) 2 (2-10) % Eosinophils % (Manual) 2 (0.7-5.8) % Basophils % (Manual) 2 H (0.1-1.2) Toxic Granulation Few Platelet Estimate Adequate Plt Morphology Comment See note RBC Morph Comment Normal Sodium 137 (136-145) mEq/L Potassium 4.2 (3.5-5.1) mEq/L Chloride 99 (98-107) mEq/L Carbon Dioxide 30 (21-32) mEq/L Anion Gap 12.2 (5-15) BUN 21 H (7-18) mg/dL Creatinine 0.8 (0.55-1.02) mg/dL Est Cr Clr Drug Dosing 62.72 mL/min Estimated GFR (MDRD) > 60 (>60) mL/min BUN/Creatinine Ratio 26.3 H (14-18) Glucose 117 H (83-115) mg/dL Lactic Acid 0.8 (0.4-2.0) mmol/L Calcium 9.4 (8.5-10.1) mg/dL Magnesium (1.8-2.4) mg/dl Total Bilirubin 0.9 (0.2-1.0) mg/dL AST 65 H (15-37) U/L ALT 79 H (14-59) U/L Alkaline Phosphatase 88 (46-116) U/L C-Reactive Protein 15.9 H* (<1.0) mg/dL Total Protein 7.9 (6.4-8.2) g/dl Albumin 2.8 L (3.4-5.0) g/dl Globulin 5.1 gm/dL Albumin/Globulin Ratio 0.6 L (1-2) Urine Color (Yellow) Urine Appearance (Clear) Urine pH (5.0-8.0) Ur Specific [place] (1.005-1.030) Urine Protein (Negative) Urine Glucose (UA) (Negative) Urine Ketones (Negative) Urine Occult Blood (Negative) Urine Nitrite (Negative) Urine Bilirubin (Negative) Urine Urobilinogen (0.2-1.0) Ur Leukocyte Esterase (Negative) Urine RBC (0-5) /hpf Urine WBC (0-5) /hpf Ur Epithelial Cells (0-5) /hpf Urine Bacteria (FEW) /hpf Urine Mucus (FEW) /hpf Mycoplasma pneumon IgM Negative (NEGATIVE) 08/27/18 08/27/18 Range/Units 16:45 18:20 WBC (3.98-10.04) K/mm3 RBC (3.98-5.22) M/mm3 Hgb (11.2-15.7) gm/L Hct (34.1-44.9) % MCV (79.4-94.8) fl MCH (25.6-32.2) pg MCHC (32.2-35.5) g/dl RDW Std Deviation (36.4-46.3) fL Plt Count (182-369) K/mm3 MPV Neutrophils % (Manual) (40-60) % Band Neutrophils % (0-10) % Lymphocytes % (Manual) (20-40) % Atypical Lymphs % % Monocytes % (Manual) (2-10) % Eosinophils % (Manual) (0.7-5.8) % Basophils % (Manual) (0.1-1.2) Toxic Granulation Platelet Estimate Plt Morphology Comment RBC Morph Comment Sodium (136-145) mEq/L Potassium (3.5-5.1) mEq/L Chloride (98-107) mEq/L Carbon Dioxide (21-32) mEq/L Anion Gap (5-15) BUN (7-18) mg/dL Creatinine (0.55-1.02) mg/dL Est Cr Clr Drug Dosing mL/min Estimated GFR (MDRD) (>60) mL/min BUN/Creatinine Ratio (14-18) Glucose (83-115) mg/dL Lactic Acid (0.4-2.0) mmol/L Calcium (8.5-10.1) mg/dL Magnesium 2.2 (1.8-2.4) mg/dl Total Bilirubin (0.2-1.0) mg/dL AST (15-37) U/L ALT (14-59) U/L Alkaline Phosphatase (46-116) U/L C-Reactive Protein (<1.0) mg/dL Total Protein (6.4-8.2) g/dl Albumin (3.4-5.0) g/dl Globulin gm/dL Albumin/Globulin Ratio (1-2) Urine Color Yellow (Yellow) Urine Appearance Cloudy H (Clear) Urine pH 7.0 (5.0-8.0) Ur Specific [place] 1.020 (1.005-1.030) Urine Protein 2+ H (Negative) Urine Glucose (UA) Negative (Negative) Urine Ketones Negative (Negative) Urine Occult Blood 1+ H (Negative) Urine Nitrite Negative (Negative) Urine Bilirubin Negative (Negative) Urine Urobilinogen 0.2 (0.2-1.0) Ur Leukocyte Esterase 3+ H (Negative) Urine RBC 5-10 H (0-5) /hpf Urine WBC 40-50 H (0-5) /hpf Ur Epithelial Cells 10-20 H (0-5) /hpf Urine Bacteria Many H (FEW) /hpf Urine Mucus Few (FEW) /hpf Mycoplasma pneumon IgM (NEGATIVE) Result Diagrams: 08/28/18 05:10 08/28/18 05:10 Lyle Results Last 24 hrs: Microbiology 08/27/18 16:50 Influenza Type A Antigen Screen - Final Nasopharyngeal Swab NEGATIVE INFLUENZA A VIRUS AG Influenza Type B Antigen Screen - Final NEGATIVE INFLUENZA B VIRUS AG - Problem List (1) Pneumonia SNOMED Code(s): 283613091 ICD Code: J18.9 - PNEUMONIA, UNSPECIFIED ORGANISM Status: Acute Current Visit: Yes (2) UTI (urinary tract infection) SNOMED Code(s): 79775403 ICD Code: N39.0 - URINARY TRACT INFECTION, SITE NOT SPECIFIED Status: Acute Current Visit: Yes Qualifiers: Urinary tract infection type: site unspecified Hematuria presence: without hematuria Qualified Code(s): N39.0 - Urinary tract infection, site not specified (3) Cervical pain (neck) SNOMED Code(s): 84107503 ICD Code: M54.2 - CERVICALGIA Status: Acute Current Visit: No (4) Choking episode SNOMED Code(s): 346949836 ICD Code: R09.89 - OTH SYMPTOMS AND SIGNS INVOLVING THE CIRC AND RESP SYSTEMS Status: Acute Current Visit: No (5) Dysphagia SNOMED Code(s): 63230498, 918722570 ICD Code: R13.10 - DYSPHAGIA, UNSPECIFIED Status: Acute Current Visit: No Qualifiers: Dysphagia type: unspecified Qualified Code(s): R13.10 - Dysphagia, unspecified Problem List Initiated/Reviewed/Updated: Yes Orders Last 24hrs: Active Orders 24 hr Category Date Time Status Patient Status [ADT] Routine ADT 08/27/18 18:51 Active Cardiac Monitoring [RC] . DIRECTED Care 08/27/18 16:31 Active EKG Documentation Completion [RC] ASDIRECTED Care 08/27/18 16:31 Active Peripheral IV Care [RC] . DIRECTED Care 08/27/18 16:30 Active Chest 1V Frontal [CR] Stat Exams 08/27/18 16:31 Taken CULTURE BLOOD [BC] Stat Lab 08/27/18 16:45 Received CULTURE BLOOD [BC] Stat Lab 08/27/18 16:55 Received CULTURE URINE [RM] Stat Lab 08/27/18 18:49 Ordered Sodium Chloride 0.9% [Normal Saline] 1,000 ml Med 08/27/18 18:15 Active IV ONETIME Sodium Chloride 0.9% [Normal Saline] 1,000 ml Med 08/27/18 18:49 Active IV ONETIME Sodium Chloride 0.9% [Saline Flush] Med 08/27/18 16:26 Active 10 ml FLUSH ASDIRECTED PRN Blood Culture x2 Reflex Set [OM.PC] Stat Oth 08/27/18 16:26 Ordered Peripheral IV Insertion Adult [OM.PC] Routine Oth 08/27/18 16:25 Ordered EKG 12 Lead [EK] Stat Ther 08/27/18 16:31 Ordered Medication Orders Sodium Chloride (Normal Saline) 1,000 mls @ 125 mls/hr IV ONETIME ONE Stop: 08/28/18 02:14 Sodium Chloride (Normal Saline) 1,000 mls @ 999 mls/hr IV ONETIME ONE Stop: 08/27/18 19:49 Last Admin: 08/27/18 19:01 Dose: 999 mls/hr Sodium Chloride (Saline Flush) 10 ml FLUSH ASDIRECTED PRN PRN Reason: Keep Vein Open Last Admin: 08/27/18 16:48 Dose: 10 ml Assessment/Plan Comment:: Impression: RLL infiltrate, received Rocephin, ED AUTI Acute mental status change Chronic Progressive Supranuclear Palsy HTN ROSEMARY UI Plan: IVF IV ATBs NPO Aspiration precautions HOB>45 degrees Nebs--scheduled/prn Hold oral medication SP--swallow eval Consult PT/OT/CM DVT/GI prophylaxis
[2018-08-27] MEDS ORDERED: Albuterol 0.083% 2.5 MG/3 ML Neb Soln NEB PRN (20:05)
[2018-08-27] MEDS ORDERED: Ondansetron 4 MG/2 ML SDV IVPUSH PRN (20:07)
[2018-08-27] MEDS ORDERED: Acetaminophen 325 MG Tab PO PRN (20:33)
[2018-08-27] MEDS: Carboxymethylcellulose Sodium 1% Ophth Gel 15 ML Bottle EYEBOTH SCH (20:56)
[2018-08-27] MEDS: Latanoprost 0.005% Ophth Soln 2.5 ML Bottle EYEBOTH SCH (20:56)
[2018-08-27] MEDS ORDERED: Enoxaparin 40 MG/0.4 ML Syringe SUBCUT SCH (21:00)
[2018-08-27] MEDS: Sodium Chloride 0.9% 1,000 ML IV SCH (21:09)
[2018-08-27] MEDS: Albuterol/Ipratropium 3.0-0.5 MG/3 ML Neb Soln NEB SCH (21:52)
[2018-08-27] MEDS ORDERED: Azithromycin 500 MG in Sodium Chloride 0.9% 250 ML IV SCH (23:00)
[2018-08-27] MEDS: Amantadine Soln 50 MG/5 ML UD Cup PO SCH (23:08)
[2018-08-28] MEDS: Sodium Chloride 0.9% 1,000 ML IV SCH (03:29)
[2018-08-28] MEDS ORDERED: Sodium Chloride 0.9% 1,000 ML IV SCH (05:00)
[2018-08-28] MEDS: Albuterol/Ipratropium 3.0-0.5 MG/3 ML Neb Soln NEB SCH ×4 (05:41→20:56)
[2018-08-28] MEDS: Amantadine Soln 50 MG/5 ML UD Cup PO SCH ×2 (07:44→09:53)
[2018-08-28] MEDS ORDERED: Metoprolol Succinate 50 MG Tab.ER PO SCH ×2 (09:00)
[2018-08-28] MEDS ORDERED: Aspirin 81 MG Tab.EC PO SCH (09:00)
[2018-08-28] MEDS ORDERED: Timolol Maleate 0.5% Ophth Soln 5 ML Bottle EYEBOTH SCH ×2 (09:00→21:00)
[2018-08-28] MEDS ORDERED: Scopolamine 1.5 MG Transdermal Patch TRDERM PRN (09:43)
[2018-08-28] MEDS ORDERED: Metoprolol Tartrate 5 MG/5 ML SDV IVPUSH PRN (09:44)
[2018-08-28] MEDS ORDERED: Famotidine 20 MG/2 ML SDV IVPUSH SCH (09:45)
[2018-08-28] MEDS ORDERED: hydrALAZINE 20 MG/ML SDV IVPUSH PRN (09:45)
[2018-08-28] MEDS ORDERED: Dextrose 5%-0.9% NaCl 1,000 ML IV SCH (09:45)
[2018-08-28] MEDS ORDERED: Acetaminophen 650 MG Supp RECTAL PRN (09:49)
[2018-08-28] MEDS: Carboxymethylcellulose Sodium 1% Ophth Gel 15 ML Bottle EYEBOTH SCH ×2 (09:55→15:19)
[2018-08-28] MEDS ORDERED: REMOVE SCOPOLAMINE TRDERM PRN (10:13)
--- NOTE | 2018-08-28 14:08 | CR ---
Chest: Portable view of the chest was obtained. Comparison: Prior chest x-ray of 10/31/13. Heart size is normal. Tortuous thoracic aorta is seen. Lungs are clear with no acute parenchymal change. Bony structures are grossly intact. Impression: 1. Nothing acute is appreciated on portable chest x-ray. Diagnostic code #2
[2018-08-28 15:20] VITALS: BP 121/78
[2018-08-28] MEDS ORDERED: cefTRIAXone 2 GM in Sodium Chloride 0.9% 100 ML IV SCH (18:00)
--- NOTE | 2018-08-28 18:18 | PCM.PN ---
- General Info Date of Service: 08/28/18 Functional Status: Reports: Urinating - Review of Systems General: Reports: Weakness, Malaise HEENT: Reports: No Symptoms Pulmonary: Reports: No Symptoms Cardiovascular: Reports: No Symptoms Gastrointestinal: Reports: No Symptoms Genitourinary: Reports: No Symptoms Musculoskeletal: Reports: No Symptoms Skin: Reports: No Symptoms Neurological: Reports: No Symptoms Psychiatric: Reports: No Symptoms - Patient Data Vitals - Most Recent: Last Vital Signs Temp 37.4 C 08/28/18 15:12 Pulse 99 08/28/18 15:13 Resp 19 08/28/18 15:12 BP 121/78 08/28/18 15:13 Pulse Ox 92 L 08/28/18 15:15 Weight - Most Recent: 82.1 kg I&O - Last 24 Hours: Intake & Output 08/28/18 08/28/18 08/28/18 06:59 14:59 22:59 Intake Total 1370 1386 Output Total 900 700 Balance 470 686 Lab Results Last 24 Hours: Laboratory Results - last 24 hr 08/27/18 08/28/18 08/28/18 Range/Units 18:20 05:05 05:10 WBC 15.29 H (3.98-10.04) K/mm3 RBC 3.94 L (3.98-5.22) M/mm3 Hgb 11.1 L (11.2-15.7) gm/L Hct 34.7 (34.1-44.9) % MCV 88.1 (79.4-94.8) fl MCH 28.2 (25.6-32.2) pg MCHC 32.0 L (32.2-35.5) g/dl RDW Std Deviation 46.1 (36.4-46.3) fL Plt Count 183 (182-369) K/mm3 MPV 13.2 H (9.4-12.3) fl Neut % (Auto) 76.1 H (34.0-71.1) % Lymph % (Auto) 14.3 L (19.3-51.7) % [place] % (Auto) 7.7 (4.7-12.5) % Eos % (Auto) 1.4 (0.7-5.8) Baso % (Auto) 0.2 (0.1-1.2) % Neut # (Auto) 11.64 H (1.56-6.13) K/mm3 Lymph # (Auto) 2.19 (1.18-3.74) K/mm3 [place] # (Auto) 1.17 H (0.24-0.36) K/mm3 Eos # (Auto) 0.22 (0.04-0.36) K/mm3 Baso # (Auto) 0.03 (0.01-0.08) K/mm3 Manual Slide Review Abnormal smear Sodium (136-145) mEq/L Potassium (3.5-5.1) mEq/L Chloride (98-107) mEq/L Carbon Dioxide (21-32) mEq/L Anion Gap (5-15) BUN (7-18) mg/dL Creatinine (0.55-1.02) mg/dL Est Cr Clr Drug Dosing mL/min Estimated GFR (MDRD) (>60) mL/min BUN/Creatinine Ratio (14-18) Glucose (83-115) mg/dL Lactic Acid 0.8 (0.4-2.0) mmol/L Calcium (8.5-10.1) mg/dL Magnesium (1.8-2.4) mg/dl C-Reactive Protein (<1.0) mg/dL Urine Color Yellow (Yellow) Urine Appearance Cloudy H (Clear) Urine pH 7.0 (5.0-8.0) Ur Specific [place] 1.020 (1.005-1.030) Urine Protein 2+ H (Negative) Urine Glucose (UA) Negative (Negative) Urine Ketones Negative (Negative) Urine Occult Blood 1+ H (Negative) Urine Nitrite Negative (Negative) Urine Bilirubin Negative (Negative) Urine Urobilinogen 0.2 (0.2-1.0) Ur Leukocyte Esterase 3+ H (Negative) Urine RBC 5-10 H (0-5) /hpf Urine WBC 40-50 H (0-5) /hpf Ur Epithelial Cells 10-20 H (0-5) /hpf Urine Bacteria Many H (FEW) /hpf Urine Mucus Few (FEW) /hpf 08/28/18 Range/Units 05:10 WBC (3.98-10.04) K/mm3 RBC (3.98-5.22) M/mm3 Hgb (11.2-15.7) gm/L Hct (34.1-44.9) % MCV (79.4-94.8) fl MCH (25.6-32.2) pg MCHC (32.2-35.5) g/dl RDW Std Deviation (36.4-46.3) fL Plt Count (182-369) K/mm3 MPV (9.4-12.3) fl Neut % (Auto) (34.0-71.1) % Lymph % (Auto) (19.3-51.7) % [place] % (Auto) (4.7-12.5) % Eos % (Auto) (0.7-5.8) Baso % (Auto) (0.1-1.2) % Neut # (Auto) (1.56-6.13) K/mm3 Lymph # (Auto) (1.18-3.74) K/mm3 [place] # (Auto) (0.24-0.36) K/mm3 Eos # (Auto) (0.04-0.36) K/mm3 Baso # (Auto) (0.01-0.08) K/mm3 Manual Slide Review Sodium 140 (136-145) mEq/L Potassium 3.6 (3.5-5.1) mEq/L Chloride 105 (98-107) mEq/L Carbon Dioxide 24 (21-32) mEq/L Anion Gap 14.6 (5-15) BUN 12 (7-18) mg/dL Creatinine 0.6 (0.55-1.02) mg/dL Est Cr Clr Drug Dosing 83.63 mL/min Estimated GFR (MDRD) > 60 (>60) mL/min BUN/Creatinine Ratio 20.0 H (14-18) Glucose 122 H (83-115) mg/dL Lactic Acid (0.4-2.0) mmol/L Calcium 8.7 (8.5-10.1) mg/dL Magnesium 2.0 (1.8-2.4) mg/dl C-Reactive Protein 11.4 H* (<1.0) mg/dL Urine Color (Yellow) Urine Appearance (Clear) Urine pH (5.0-8.0) Ur Specific [place] (1.005-1.030) Urine Protein (Negative) Urine Glucose (UA) (Negative) Urine Ketones (Negative) Urine Occult Blood (Negative) Urine Nitrite (Negative) Urine Bilirubin (Negative) Urine Urobilinogen (0.2-1.0) Ur Leukocyte Esterase (Negative) Urine RBC (0-5) /hpf Urine WBC (0-5) /hpf Ur Epithelial Cells (0-5) /hpf Urine Bacteria (FEW) /hpf Urine Mucus (FEW) /hpf Lyle Results Last 24 Hours: Microbiology 08/27/18 16:55 Aerobic Blood Culture - Preliminary Blood - Venous - Lab Draw NO GROWTH AFTER 1 DAY Anaerobic Blood Culture - Preliminary NO GROWTH AFTER 1 DAY 08/27/18 16:45 Aerobic Blood Culture - Preliminary Blood - Venous NO GROWTH AFTER 1 DAY Anaerobic Blood Culture - Preliminary NO GROWTH AFTER 1 DAY 08/27/18 18:20 Urine Culture - Preliminary Urine, Voided Gram Negative Rods 08/27/18 16:50 Influenza Type A Antigen Screen - Final Nasopharyngeal Swab NEGATIVE INFLUENZA A VIRUS AG Influenza Type B Antigen Screen - Final NEGATIVE INFLUENZA B VIRUS AG Med Orders - Current: Current Medications Acetaminophen (Tylenol) 650 mg RECTAL Q6H PRN PRN Reason: Pain/Fever Albuterol (Proventil Neb Soln) 2.5 mg NEB Q4HRRT PRN PRN Reason: Shortness of Breath Albuterol/Ipratropium (Duoneb 3.0-0.5 Mg/3 Ml) 3 ml NEB QIDRT [facility] Last Admin: 08/28/18 15:15 Dose: 3 ml Artificial Tears (Refresh Liquigel 1%) 0 ml EYEBOTH TID [facility] Last Admin: 08/28/18 15:19 Dose: 1 drop Enoxaparin Sodium (Lovenox) 40 mg SUBCUT Q24H [facility] Last Admin: 08/27/18 20:56 Dose: 40 mg Hydralazine HCl (Apresoline) 20 mg IVPUSH Q6H PRN PRN Reason: Hypertension Azithromycin 500 mg/ Sodium (Chloride) 250 mls @ 250 mls/hr IV Q24H [facility] Last Admin: 08/27/18 23:37 Dose: 250 mls/hr Ceftriaxone Sodium 2 gm/ (Sodium Chloride) 100 mls @ 200 mls/hr IV Q24H [facility] Dextrose/Sodium Chloride (Dextrose 5%-Normal Saline) 1,000 mls @ 100 mls/hr IV ASDIRECTED [facility] Last Admin: 08/28/18 10:37 Dose: 100 mls/hr Latanoprost (Xalatan 0.005% Ophth Soln) 0 ml EYEBOTH BEDTIME [facility] Last Admin: 08/27/18 20:56 Dose: 1 drop Metoprolol Tartrate (Lopressor) 5 mg IVPUSH Q4H PRN PRN Reason: Tachycardia Miscellaneous Information (Remove Patch) 1 ea TRDERM Q72H PRN PRN Reason: IF USED Ondansetron HCl (Zofran) 4 mg IVPUSH Q8H PRN PRN Reason: Nausea/Vomiting Scopolamine (Transderm-Scop) 1.5 mg TRDERM Q72H PRN PRN Reason: Nausea/Vomiting Sodium Chloride (Saline Flush) 10 ml FLUSH ASDIRECTED PRN PRN Reason: Keep Vein Open Last Admin: 08/27/18 16:48 Dose: 10 ml Timolol Maleate (Timoptic 0.5% Ophth Soln) 0 ml EYEBOTH BEDTIME [facility] Discontinued Medications Acetaminophen (Tylenol) 650 mg PO Q6H PRN PRN Reason: Pain/Fever Amantadine HCl (Symmetrel 50 Mg/5 Ml Soln) 100 mg PO Q12H [facility] Last Admin: 08/28/18 09:53 Dose: 100 mg Aspirin (Halfprin) 81 mg PO DAILY [facility] Last Admin: 08/28/18 10:36 Dose: Not Given Famotidine (Pepcid) 20 mg IVPUSH BID [facility] Last Admin: 08/28/18 10:36 Dose: 20 mg Sodium Chloride (Normal Saline) 1,000 mls @ 999 mls/hr IV ONETIME ONE Stop: 08/27/18 17:26 Last Admin: 08/27/18 16:45 Dose: 999 mls/hr Ceftriaxone Sodium 2 gm/ (Sodium Chloride) 100 mls @ 200 mls/hr IV NOW STA Stop: 08/27/18 17:55 Last Admin: 08/27/18 18:16 Dose: 200 mls/hr Sodium Chloride (Normal Saline) 1,000 mls @ 125 mls/hr IV ONETIME ONE Stop: 08/28/18 02:14 Last Admin: 08/27/18 20:56 Dose: Not Given Sodium Chloride (Normal Saline) 1,000 mls @ 999 mls/hr IV ONETIME ONE Stop: 08/27/18 19:49 Last Admin: 08/27/18 19:01 Dose: 999 mls/hr Sodium Chloride (Normal Saline) 1,000 mls @ 150 mls/hr IV ASDIRECTED [facility] Stop: 08/28/18 05:00 Last Admin: 08/28/18 03:29 Dose: 150 mls/hr Sodium Chloride (Normal Saline) 1,000 mls @ 75 mls/hr IV ASDIRECTED [facility] Last Admin: 08/28/18 05:34 Dose: 75 mls/hr Metoprolol Succinate (Toprol Xl) 50 mg PO DAILY [facility] Metoprolol Succinate (Toprol Xl) 25 mg PO DAILY [facility] Last Admin: 08/28/18 10:37 Dose: Not Given Ondansetron HCl (Zofran) 4 mg IVPUSH ONETIME ONE Stop: 08/27/18 16:33 Last Admin: 08/27/18 16:46 Dose: 4 mg Timolol Maleate (Timoptic 0.5% Ophth Soln) 0 ml EYEBOTH DAILY [facility] Last Admin: 08/28/18 10:46 Dose: Not Given - Exam Quality Assessment: DVT Prophylaxis General: Alert, Oriented, Cooperative, No Acute Distress HEENT: Pupils Equal, Pupils Reactive, EOMI Neck: Trachea Midline, No JVD Lungs: Normal Respiratory Effort Cardiovascular: Regular Rate GI/Abdominal Exam: Normal Bowel Sounds, Soft, Non-Tender, No Organomegaly, No Distention (Female) Exam: Deferred Back Exam: Normal Inspection Extremities: Normal Inspection, Non-Tender, Normal Capillary Refill Skin: Warm Neurological: No New Focal Deficit Psy/Mental Status: Alert - Problem List & Annotations (1) Pneumonia SNOMED Code(s): 769175464 Code(s): J18.9 - PNEUMONIA, UNSPECIFIED ORGANISM Status: Acute Current Visit: Yes (2) UTI (urinary tract infection) SNOMED Code(s): 77997847 Code(s): N39.0 - URINARY TRACT INFECTION, SITE NOT SPECIFIED Status: Acute Current Visit: Yes Qualifiers: Urinary tract infection type: site unspecified Hematuria presence: without hematuria Qualified Code(s): N39.0 - Urinary tract infection, site not specified (3) Cervical pain (neck) SNOMED Code(s): 65541688 Code(s): M54.2 - CERVICALGIA Status: Acute Current Visit: No (4) Choking episode SNOMED Code(s): 757019054 Code(s): R09.89 - OTH SYMPTOMS AND SIGNS INVOLVING THE CIRC AND RESP SYSTEMS Status: Acute Current Visit: No (5) Dysphagia SNOMED Code(s): 69876873, 182327367 Code(s): R13.10 - DYSPHAGIA, UNSPECIFIED Status: Acute Current Visit: No Qualifiers: Dysphagia type: unspecified Qualified Code(s): R13.10 - Dysphagia, unspecified - Problem List Review Problem List Initiated/Reviewed/Updated: Yes - My Orders Last 24 Hours: My Active Orders 08/27/18 18:20 STREP PNEUMONIAE ANTIGEN [MREF] Routine 08/27/18 20:05 RT Aerosol Therapy [RC] ASDIRECTED Albuterol [Proventil Neb Soln] 2.5 mg NEB Q4HRRT PRN 08/27/18 20:07 Ondansetron [Zofran] 4 mg IVPUSH Q8H PRN 08/27/18 20:27 Swallow Screen [Nursing Bedside Swallow Screen] [] 10 08/27/18 21:00 Albuterol/Ipratropium [DuoNeb 3.0-0.5 MG/3 ML] 3 ml NEB QIDRT Carboxymethylcellulose Sodium [Refresh Liquigel 1%] 0 ml EYEBOTH TID Enoxaparin [Lovenox] 40 mg SUBCUT Q24H Latanoprost [Xalatan 0.005% Ophth Soln] 0 ml EYEBOTH BEDTIME 08/27/18 23:00 Azithromycin [Zithromax] 500 mg Sodium Chloride 0.9% [Normal Saline] 250 ml IV Q24H 08/27/18 23:09 Urinary Catheter Assessment [RC] 04,10,16,22 08/27/18 23:15 Insert Perez Catheter [Insert Urinary Catheter] [OM.PC] Q24H 08/28/18 01:10 Bedrest Bedside Commode [RC] ASDIRECTED Up to Chair [RC] ASDIRECTED 08/28/18 09:43 Scopolamine [Transderm-Scop] 1.5 mg TRDERM Q72H PRN 08/28/18 09:44 Metoprolol Tartrate [Lopressor] 5 mg IVPUSH Q4H PRN 08/28/18 09:45 Dextrose 5%-0.9% NaCl [Dextrose 5%-Normal Saline] 1,000 ml IV ASDIRECTED hydrALAZINE [Apresoline] 20 mg IVPUSH Q6H PRN 08/28/18 09:49 Acetaminophen [Tylenol] 650 mg RECTAL Q6H PRN 08/28/18 09:50 Head of Bed Elevation [RC] DAILY 08/28/18 10:13 Remove Patch 1 ea TRDERM Q72H PRN 08/28/18 16:46 Code Status [Resuscitation Status] Routine 08/28/18 18:00 cefTRIAXone [Rocephin] 2 gm Sodium Chloride 0.9% [Normal Saline] 100 ml IV Q24H 08/28/18 21:00 Timolol Maleate [Timoptic 0.5% Ophth Soln] 0 ml EYEBOTH BEDTIME 08/28/18 Breakfast NPO [Nothing Per Oral Diet] [DIET] 08/29/18 05:00 BMP [BASIC METABOLIC PANEL,BMP] [CHEM] DAILY CBC WITH AUTO DIFF [HEME] DAILY CRP [C-REACTIVE PROTEIN] [CHEM] DAILY LACTIC ACID [CHEM] DAILY MAGNESIUM [CHEM] DAILY 08/29/18 09:00 Consult to Case Management/Industrial Safety And Health Specialist [CONS] Routine 08/29/18 10:00 CXR [Chest 1V Frontal] [CR] Routine 08/30/18 05:00 BMP [BASIC METABOLIC PANEL,BMP] [CHEM] DAILY CBC WITH AUTO DIFF [HEME] DAILY CRP [C-REACTIVE PROTEIN] [CHEM] DAILY LACTIC ACID [CHEM] DAILY MAGNESIUM [CHEM] DAILY 08/31/18 05:00 BMP [BASIC METABOLIC PANEL,BMP] [CHEM] DAILY CBC WITH AUTO DIFF [HEME] DAILY CRP [C-REACTIVE PROTEIN] [CHEM] DAILY LACTIC ACID [CHEM] DAILY MAGNESIUM [CHEM] DAILY 09/01/18 05:00 LACTIC ACID [CHEM] DAILY - Plan Plan:: Impression: Current treatment will be stopped per family/POA request--new code status: DNR?DNI, Comfort Care RLL infiltrate, received Rocephin, ED; stopped ATB AUTI, stopped ATB Acute mental status change Chronic Progressive Supranuclear Palsy HTN ROSEMARY UI Plan: IVF IV ATBs NPO Aspiration precautions HOB>45 degrees Nebs--scheduled/prn Hold oral medication SP--swallow eval Consult PT/OT/CM DVT/GI prophylaxis Comfort Care started, need CM for return to home/SNF
[2018-08-28] MEDS: Latanoprost 0.005% Ophth Soln 2.5 ML Bottle EYEBOTH SCH (21:24)
[2018-08-29] MEDS ORDERED: Morphine 2 MG/ML Syringe IVPUSH ONE (05:15)
[2018-08-29] MEDS: Albuterol/Ipratropium 3.0-0.5 MG/3 ML Neb Soln NEB SCH (06:28)
--- NOTE | 2018-08-29 16:02 | PCM.PN ---
- General Info Date of Service: 08/29/18 Functional Status: Reports: Pain Controlled - Review of Systems General: Reports: No Symptoms HEENT: Reports: No Symptoms Pulmonary: Reports: No Symptoms Cardiovascular: Reports: No Symptoms Gastrointestinal: Reports: No Symptoms Genitourinary: Reports: No Symptoms Musculoskeletal: Reports: No Symptoms Skin: Reports: No Symptoms Neurological: Reports: No Symptoms Psychiatric: Reports: No Symptoms - Patient Data Vitals - Most Recent: Last Vital Signs Temp 37.4 C 08/28/18 15:12 Pulse 99 08/28/18 15:13 Resp 19 08/28/18 15:12 BP 121/78 08/28/18 15:13 Pulse Ox 92 L 08/28/18 15:15 Weight - Most Recent: 84.141 kg I&O - Last 24 Hours: Intake & Output 08/29/18 08/29/18 08/29/18 06:59 14:59 22:59 Output Total 450 Balance -450 Lyle Results Last 24 Hours: Microbiology 08/27/18 18:20 Urine Culture - Final Urine, Voided Escherichia Coli 08/27/18 16:55 Aerobic Blood Culture - Preliminary Blood - Venous - Lab Draw NO GROWTH AFTER 1 DAY Anaerobic Blood Culture - Preliminary NO GROWTH AFTER 1 DAY 08/27/18 16:45 Aerobic Blood Culture - Preliminary Blood - Venous NO GROWTH AFTER 1 DAY Anaerobic Blood Culture - Preliminary NO GROWTH AFTER 1 DAY Med Orders - Current: Current Medications Acetaminophen (Tylenol) 650 mg RECTAL Q6H PRN PRN Reason: Pain/Fever Albuterol (Proventil Neb Soln) 2.5 mg NEB Q4HRRT PRN PRN Reason: Shortness of Breath Latanoprost (Xalatan 0.005% Ophth Soln) 0 ml EYEBOTH BEDTIME [place] Last Admin: 08/28/18 21:24 Dose: Not Given Metoprolol Tartrate (Lopressor) 5 mg IVPUSH Q4H PRN PRN Reason: Tachycardia Miscellaneous Information (Remove Patch) 1 ea TRDERM Q72H PRN PRN Reason: IF USED Morphine Sulfate (Morphine Sulfate) 4 mg IV Q2H PRN PRN Reason: Pain Last Admin: 08/29/18 15:57 Dose: 4 mg Ondansetron HCl (Zofran) 4 mg IVPUSH Q8H PRN PRN Reason: Nausea/Vomiting Scopolamine (Transderm-Scop) 1.5 mg TRDERM Q72H PRN PRN Reason: Nausea/Vomiting Sodium Chloride (Saline Flush) 10 ml FLUSH ASDIRECTED PRN PRN Reason: Keep Vein Open Last Admin: 08/27/18 16:48 Dose: 10 ml Discontinued Medications Acetaminophen (Tylenol) 650 mg PO Q6H PRN PRN Reason: Pain/Fever Albuterol/Ipratropium (Duoneb 3.0-0.5 Mg/3 Ml) 3 ml NEB QIDRT [facility] Last Admin: 08/29/18 06:28 Dose: Not Given Amantadine HCl (Symmetrel 50 Mg/5 Ml Soln) 100 mg PO Q12H [facility] Last Admin: 08/28/18 09:53 Dose: 100 mg Artificial Tears (Refresh Liquigel 1%) 0 ml EYEBOTH TID [facility] Last Admin: 08/28/18 15:19 Dose: 1 drop Aspirin (Halfprin) 81 mg PO DAILY [facility] Last Admin: 08/28/18 10:36 Dose: Not Given Enoxaparin Sodium (Lovenox) 40 mg SUBCUT Q24H [facility] Last Admin: 08/27/18 20:56 Dose: 40 mg Famotidine (Pepcid) 20 mg IVPUSH BID [facility] Last Admin: 08/28/18 10:36 Dose: 20 mg Hydralazine HCl (Apresoline) 20 mg IVPUSH Q6H PRN PRN Reason: Hypertension Sodium Chloride (Normal Saline) 1,000 mls @ 999 mls/hr IV ONETIME ONE Stop: 08/27/18 17:26 Last Admin: 08/27/18 16:45 Dose: 999 mls/hr Ceftriaxone Sodium 2 gm/ (Sodium Chloride) 100 mls @ 200 mls/hr IV NOW STA Stop: 08/27/18 17:55 Last Admin: 08/27/18 18:16 Dose: 200 mls/hr Sodium Chloride (Normal Saline) 1,000 mls @ 125 mls/hr IV ONETIME ONE Stop: 08/28/18 02:14 Last Admin: 08/27/18 20:56 Dose: Not Given Sodium Chloride (Normal Saline) 1,000 mls @ 999 mls/hr IV ONETIME ONE Stop: 08/27/18 19:49 Last Admin: 08/27/18 19:01 Dose: 999 mls/hr Azithromycin 500 mg/ Sodium (Chloride) 250 mls @ 250 mls/hr IV Q24H [facility] Last Admin: 08/27/18 23:37 Dose: 250 mls/hr Ceftriaxone Sodium 2 gm/ (Sodium Chloride) 100 mls @ 200 mls/hr IV Q24H [facility] Last Admin: 08/28/18 18:25 Dose: Not Given Sodium Chloride (Normal Saline) 1,000 mls @ 150 mls/hr IV ASDIRECTED [facility] Stop: 08/28/18 05:00 Last Admin: 08/28/18 03:29 Dose: 150 mls/hr Sodium Chloride (Normal Saline) 1,000 mls @ 75 mls/hr IV ASDIRECTED [facility] Last Admin: 08/28/18 05:34 Dose: 75 mls/hr Dextrose/Sodium Chloride (Dextrose 5%-Normal Saline) 1,000 mls @ 100 mls/hr IV ASDIRECTED [facility] Last Admin: 08/28/18 10:37 Dose: 100 mls/hr Metoprolol Succinate (Toprol Xl) 50 mg PO DAILY [facility] Metoprolol Succinate (Toprol Xl) 25 mg PO DAILY [facility] Last Admin: 08/28/18 10:37 Dose: Not Given Morphine Sulfate (Morphine) 2 mg IVPUSH ONETIME ONE Stop: 08/29/18 05:16 Last Admin: 08/29/18 05:25 Dose: 2 mg Ondansetron HCl (Zofran) 4 mg IVPUSH ONETIME ONE Stop: 08/27/18 16:33 Last Admin: 08/27/18 16:46 Dose: 4 mg Timolol Maleate (Timoptic 0.5% Ophth Soln) 0 ml EYEBOTH DAILY [facility] Last Admin: 08/28/18 10:46 Dose: Not Given Timolol Maleate (Timoptic 0.5% Ophth Soln) 0 ml EYEBOTH BEDTIME [facility] - Exam Quality Assessment: DVT Prophylaxis General: Alert, Oriented, Cooperative, No Acute Distress HEENT: Pupils Equal, Pupils Reactive, EOMI Neck: Trachea Midline, No JVD Lungs: Decreased Breath Sounds Cardiovascular: Regular Rate GI/Abdominal Exam: Normal Bowel Sounds, Soft, Non-Tender, No Organomegaly, No Distention (Female) Exam: Deferred Back Exam: Normal Inspection Extremities: Normal Inspection, Non-Tender, Slow Capillary Refill Skin: Warm Neurological: No New Focal Deficit Psy/Mental Status: Alert - Problem List & Annotations (1) Pneumonia SNOMED Code(s): 845449273 Code(s): J18.9 - PNEUMONIA, UNSPECIFIED ORGANISM Status: Acute Current Visit: Yes (2) UTI (urinary tract infection) SNOMED Code(s): 56032634 Code(s): N39.0 - URINARY TRACT INFECTION, SITE NOT SPECIFIED Status: Acute Current Visit: Yes Qualifiers: Urinary tract infection type: site unspecified Hematuria presence: without hematuria Qualified Code(s): N39.0 - Urinary tract infection, site not specified (3) Cervical pain (neck) SNOMED Code(s): 05849561 Code(s): M54.2 - CERVICALGIA Status: Acute Current Visit: No (4) Choking episode SNOMED Code(s): 448799689 Code(s): R09.89 - OTH SYMPTOMS AND SIGNS INVOLVING THE CIRC AND RESP SYSTEMS Status: Acute Current Visit: No (5) Dysphagia SNOMED Code(s): 02473770, 548664859 Code(s): R13.10 - DYSPHAGIA, UNSPECIFIED Status: Acute Current Visit: No Qualifiers: Dysphagia type: unspecified Qualified Code(s): R13.10 - Dysphagia, unspecified - Problem List Review Problem List Initiated/Reviewed/Updated: Yes - My Orders Last 24 Hours: My Active Orders 08/28/18 16:46 Code Status [Resuscitation Status] Routine 08/29/18 09:00 Consult to Case Management/Engraver Apprentice Decorative [CONS] Routine 08/29/18 11:07 Morphine Sulfate 4 mg IV Q2H PRN - Plan Plan:: Impression: Current treatment will be stopped per family/POA request--new code status: DNR/DNI, Comfort Care RLL infiltrate, received Rocephin, ED; stopped ATB AUTI, stopped ATB Acute mental status change--improved Chronic Progressive Supranuclear Palsy HTN ROSEMARY UI Plan: IVF--stopped IV ATBs--stopped NPO Aspiration precautions HOB>45 degrees Nebs--scheduled/prn--stopped Hold oral medication SP--swallow eval--cancelled Consult PT/OT/CM DVT/GI prophylaxis Comfort Care started, DC to SNF; will go NPO except sips of water
[2018-08-29] MEDS ORDERED: LORazepam 2 MG/ML SDV IVPUSH PRN (16:47)
[2018-08-29] MEDS: Morphine 2 MG/ML Syringe IVPUSH PRN (18:50)
[2018-08-29] MEDS: Latanoprost 0.005% Ophth Soln 2.5 ML Bottle EYEBOTH SCH (21:06)
[2018-08-30] MEDS: Morphine 2 MG/ML Syringe IVPUSH PRN (08:19)
--- NOTE | 2018-08-30 11:13 | PCM.DCSUM1 ---
Discharge Summary - Hospital Course Free Text/Narrative:: 73 year old female presented from home has a PMH of progressive supranuclear palsy began to decline. She was brought in and assessed in the ED. Two sources of infection, PNA as well as AUTI were found. The patient's code status initially was DNR/DNI, this was established with her POA, her . Family discussions were on going, and a final decision was made for DNR/DNI, Comfort Care per the patient's wishes. Thus the treatment for infection was stopped, she had been NPO to avoid aspiration. When the code status change, previously scheduled consults were also cancelled. The patient has been NPO, however the family request an occasional sip of water for comfort. Medication at DC are narcotics (SL)as needed. Primary Dx PSNP PNA AUTI Diet NPO, small sips of water Meds MSO4 5 mg SL q $H as needed. Previously on IV morphine, order was changed per SNF (original DC was cancelled on 08/30/18). HPI Initial Comments: 73 year old female diagnosed at the [facility] with progressive supranuclear palsy presents with cough, malaise, SOB. There has been no known sick contacts , Influenza and Mycoplasma are negative. CXR documents RLL PNA. She has received Rocephin 2 gm in the ED. The patient resides at home with her . A PEG tube has been declined in the past. She recently saw her PCP in the late fall. A video swallow evaluation was done at that time which documented the need for a feeding tube. Family and friends were asked their opinion and her spouse eventually declined the PEG tube. Current diet is three Ensures and 32 ounces of water. She is being admitted to [facility] with telemetry, and is DNR/DNI. Dietary correction: three Boast not Ensure. Diagnosis: Stroke: No - Discharge Data Discharge Date: 08/31/18 Discharge Disposition: DC/Tfer to SNF 03 Condition: Poor - Discharge Diagnosis/Problem(s) (1) Pneumonia SNOMED Code(s): 970130850 ICD Code: J18.9 - PNEUMONIA, UNSPECIFIED ORGANISM Status: Acute Current Visit: Yes (2) UTI (urinary tract infection) SNOMED Code(s): 17209389 ICD Code: N39.0 - URINARY TRACT INFECTION, SITE NOT SPECIFIED Status: Acute Current Visit: Yes Qualifiers: Urinary tract infection type: site unspecified Hematuria presence: without hematuria Qualified Code(s): N39.0 - Urinary tract infection, site not specified (3) Cervical pain (neck) SNOMED Code(s): 73829135 ICD Code: M54.2 - CERVICALGIA Status: Acute Current Visit: No (4) Choking episode SNOMED Code(s): 018345029 ICD Code: R09.89 - OTH SYMPTOMS AND SIGNS INVOLVING THE CIRC AND RESP SYSTEMS Status: Acute Current Visit: No (5) Dysphagia SNOMED Code(s): 60494717, 938534433 ICD Code: R13.10 - DYSPHAGIA, UNSPECIFIED Status: Acute Current Visit: No Qualifiers: Dysphagia type: unspecified Qualified Code(s): R13.10 - Dysphagia, unspecified - Patient Summary/Data Consults: Consultations 08/29/18 09:00 Consult to Case Management/Retail Support Associate [CONS] Routine - Patient Instructions Diet: NPO Activity: Bedrest Driving: Do Not Drive Showering/Bathing: No Showering - Discharge Plan *PRESCRIPTION DRUG MONITORING PROGRAM REVIEWED*: No *COPY OF PRESCRIPTION DRUG MONITORING REPORT IN PATIENT KRISTI: No Prescriptions/Med Rec: Acetaminophen [Tylenol] 650 mg RECTAL Q6H PRN #20 supp PRN Reason: Pain/Fever Morphine [Morphine 10 MG/0.5 ML Oral Syringe] 5 mg SL Q4H PRN #10 syringe PRN Reason: Pain (Moderate 4-6) Scopolamine [Transderm-Scop] 1.5 mg TRDERM Q72H PRN #7 patch PRN Reason: Nausea/Vomiting Home Medications: Home Meds Carboxymethylcellulose Sodium [Refresh Tears] 1 drop EYEBOTH TID 06/23/17 [ History] Latanoprost [Xalatan 0.005% Ophth Soln] 1 drop EYEBOTH BEDTIME 06/23/17 [History ] Timolol [Betimol 0.5% Ophth Soln] 1 drop EYEBOTH DAILY 12/22/17 [History] Acetaminophen [Tylenol] 650 mg RECTAL Q6H PRN #20 supp 08/30/18 [Rx] Scopolamine [Transderm-Scop] 1.5 mg TRDERM Q72H PRN #7 patch 08/30/18 [Rx] Morphine [Morphine 10 MG/0.5 ML Oral Syringe] 5 mg SL Q4H PRN #10 syringe [Rx] Oxygen Therapy Mode: Room Air Patient Handouts: End-of-Life Care, Hospice Referrals: Lux Bull MD [Physician] - - Discharge Summary/Plan Comment DC Time >30 min.: No Discharge Summary/Plan Comment: Impression: Current treatment will be stopped per family/POA request--new code status: DNR/DNI, Comfort Care RLL infiltrate, received Rocephin, ED; stopped ATB AUTI, stopped ATB Acute mental status change--improved Chronic Progressive Supranuclear Palsy HTN ROSEMARY UI Plan: IVF--stopped IV ATBs--stopped NPO Aspiration precautions HOB>45 degrees Nebs--scheduled/prn--stopped Hold oral medication SP--swallow eval--cancelled Consult PT/OT/CM DVT/GI prophylaxis Comfort Care started, DC to SNF; will go NPO except sips of water - General Info Date of Service: 08/27/18 Functional Status: Reports: Pain Controlled - Review of Systems General: Reports: Weakness, Fatigue HEENT: Reports: Glasses Pulmonary: Reports: No Symptoms Cardiovascular: Reports: No Symptoms Gastrointestinal: Reports: Abdominal Pain Genitourinary: Reports: No Symptoms Musculoskeletal: Reports: No Symptoms Skin: Reports: No Symptoms Neurological: Reports: Pre-Existing Deficit, Trouble Speaking Psychiatric: Reports: No Symptoms - Patient Data Vitals - Most Recent: Last Vital Signs Temp 37.4 C 08/28/18 15:12 Pulse 99 08/28/18 15:13 Resp 19 08/28/18 15:12 BP 121/78 08/28/18 15:13 Pulse Ox 92 L 08/28/18 15:15 Weight - Most Recent: 86.409 kg I&O - Last 24 hours: Intake & Output 08/29/18 08/30/18 08/30/18 22:59 06:59 14:59 Intake Total 0 Output Total 600 500 Balance -600 -500 LEE ANN Results - Last 24 hrs: Microbiology 08/27/18 18:20 Streptococcus pneumoniae Antigen (M - Final Urine 08/27/18 16:55 Aerobic Blood Culture - Preliminary Blood - Venous - Lab Draw NO GROWTH AFTER 2 DAYS Anaerobic Blood Culture - Preliminary NO GROWTH AFTER 2 DAYS 08/27/18 16:45 Aerobic Blood Culture - Preliminary Blood - Venous NO GROWTH AFTER 2 DAYS Anaerobic Blood Culture - Preliminary NO GROWTH AFTER 2 DAYS 08/27/18 18:20 Urine Culture - Final Urine, Voided Escherichia Coli Med Orders - Current: Current Medications Acetaminophen (Tylenol) 650 mg RECTAL Q6H PRN PRN Reason: Pain/Fever Albuterol (Proventil Neb Soln) 2.5 mg NEB Q4HRRT PRN PRN Reason: Shortness of Breath Latanoprost (Xalatan 0.005% Ophth Soln) 0 ml EYEBOTH BEDTIME [facility] Last Admin: 08/29/18 21:06 Dose: Not Given Lorazepam (Ativan) 0.5 mg IVPUSH Q8H PRN PRN Reason: Agitation Miscellaneous Information (Remove Patch) 1 ea TRDERM Q72H PRN PRN Reason: IF USED Morphine Sulfate (Morphine Sulfate) 4 mg IV Q2H PRN PRN Reason: Pain Last Admin: 08/30/18 10:27 Dose: 4 mg Morphine Sulfate (Morphine) 2 mg IVPUSH Q4H PRN PRN Reason: Pain (moderate 4-6) Last Admin: 08/30/18 08:19 Dose: 2 mg Ondansetron HCl (Zofran) 4 mg IVPUSH Q8H PRN PRN Reason: Nausea/Vomiting Scopolamine (Transderm-Scop) 1.5 mg TRDERM Q72H PRN PRN Reason: Nausea/Vomiting Sodium Chloride (Saline Flush) 10 ml FLUSH ASDIRECTED PRN PRN Reason: Keep Vein Open Last Admin: 08/27/18 16:48 Dose: 10 ml Discontinued Medications Acetaminophen (Tylenol) 650 mg PO Q6H PRN PRN Reason: Pain/Fever Albuterol/Ipratropium (Duoneb 3.0-0.5 Mg/3 Ml) 3 ml NEB QIDRT [facility] Last Admin: 08/29/18 06:28 Dose: Not Given Amantadine HCl (Symmetrel 50 Mg/5 Ml Soln) 100 mg PO Q12H [facility] Last Admin: 08/28/18 09:53 Dose: 100 mg Artificial Tears (Refresh Liquigel 1%) 0 ml EYEBOTH TID [facility] Last Admin: 08/28/18 15:19 Dose: 1 drop Aspirin (Halfprin) 81 mg PO DAILY [facility] Last Admin: 08/28/18 10:36 Dose: Not Given Enoxaparin Sodium (Lovenox) 40 mg SUBCUT Q24H [facility] Last Admin: 08/27/18 20:56 Dose: 40 mg Famotidine (Pepcid) 20 mg IVPUSH BID [facility] Last Admin: 08/28/18 10:36 Dose: 20 mg Hydralazine HCl (Apresoline) 20 mg IVPUSH Q6H PRN PRN Reason: Hypertension Sodium Chloride (Normal Saline) 1,000 mls @ 999 mls/hr IV ONETIME ONE Stop: 08/27/18 17:26 Last Admin: 08/27/18 16:45 Dose: 999 mls/hr Ceftriaxone Sodium 2 gm/ (Sodium Chloride) 100 mls @ 200 mls/hr IV NOW STA Stop: 08/27/18 17:55 Last Admin: 08/27/18 18:16 Dose: 200 mls/hr Sodium Chloride (Normal Saline) 1,000 mls @ 125 mls/hr IV ONETIME ONE Stop: 08/28/18 02:14 Last Admin: 08/27/18 20:56 Dose: Not Given Sodium Chloride (Normal Saline) 1,000 mls @ 999 mls/hr IV ONETIME ONE Stop: 08/27/18 19:49 Last Admin: 08/27/18 19:01 Dose: 999 mls/hr Azithromycin 500 mg/ Sodium (Chloride) 250 mls @ 250 mls/hr IV Q24H [facility] Last Admin: 08/27/18 23:37 Dose: 250 mls/hr Ceftriaxone Sodium 2 gm/ (Sodium Chloride) 100 mls @ 200 mls/hr IV Q24H [facility] Last Admin: 08/28/18 18:25 Dose: Not Given Sodium Chloride (Normal Saline) 1,000 mls @ 150 mls/hr IV ASDIRECTED [facility] Stop: 08/28/18 05:00 Last Admin: 08/28/18 03:29 Dose: 150 mls/hr Sodium Chloride (Normal Saline) 1,000 mls @ 75 mls/hr IV ASDIRECTED [facility] Last Admin: 08/28/18 05:34 Dose: 75 mls/hr Dextrose/Sodium Chloride (Dextrose 5%-Normal Saline) 1,000 mls @ 100 mls/hr IV ASDIRECTED [facility] Last Admin: 08/28/18 10:37 Dose: 100 mls/hr Metoprolol Succinate (Toprol Xl) 50 mg PO DAILY [facility] Metoprolol Succinate (Toprol Xl) 25 mg PO DAILY [facility] Last Admin: 08/28/18 10:37 Dose: Not Given Metoprolol Tartrate (Lopressor) 5 mg IVPUSH Q4H PRN PRN Reason: Tachycardia Morphine Sulfate (Morphine) 2 mg IVPUSH ONETIME ONE Stop: 08/29/18 05:16 Last Admin: 08/29/18 05:25 Dose: 2 mg Ondansetron HCl (Zofran) 4 mg IVPUSH ONETIME ONE Stop: 08/27/18 16:33 Last Admin: 08/27/18 16:46 Dose: 4 mg Timolol Maleate (Timoptic 0.5% Ophth Soln) 0 ml EYEBOTH DAILY [facility] Last Admin: 08/28/18 10:46 Dose: Not Given Timolol Maleate (Timoptic 0.5% Ophth Soln) 0 ml EYEBOTH BEDTIME [facility] - Exam Quality Assessment: Reports: Urine Catheter General: Reports: Alert, Oriented, Cooperative, No Acute Distress HEENT: Reports: Pupils Equal, Pupils Reactive, EOMI Neck: Reports: Trachea Midline, No JVD Lungs: Reports: Normal Respiratory Effort, Decreased Breath Sounds Cardiovascular: Reports: Regular Rate GI/Abdominal Exam: Normal Bowel Sounds, Soft, Non-Tender, No Organomegaly, No Distention (Female) Exam: Deferred Rectal (Female) Exam: Deferred Back Exam: Reports: Normal Inspection Extremities: Normal Capillary Refill Skin: Reports: Warm Neurological: Reports: No New Focal Deficit Psy/Mental Status: Reports: Alert
[2018-08-30] MEDS ORDERED: Morphine 10 MG/0.5 ML Oral Syringe SL PRN (12:43)
--- NOTE | 2018-08-30 13:06 | PCM.PN ---
- General Info Date of Service: 08/30/18 Subjective Update: DC stopped, SNF request no IV narcotics on the day of transfer. Will need triall of sublingual pain management. Functional Status: Reports: Pain Controlled - Review of Systems General: Reports: No Symptoms HEENT: Reports: No Symptoms Pulmonary: Reports: No Symptoms Cardiovascular: Reports: No Symptoms Gastrointestinal: Reports: No Symptoms Genitourinary: Reports: No Symptoms Musculoskeletal: Reports: No Symptoms Skin: Reports: No Symptoms Neurological: Reports: No Symptoms Psychiatric: Reports: No Symptoms - Patient Data Vitals - Most Recent: Last Vital Signs Temp 37.4 C 08/28/18 15:12 Pulse 99 08/28/18 15:13 Resp 19 08/28/18 15:12 BP 121/78 08/28/18 15:13 Pulse Ox 92 L 08/28/18 15:15 Weight - Most Recent: 86.409 kg I&O - Last 24 Hours: Intake & Output 08/29/18 08/30/18 08/30/18 22:59 06:59 14:59 Intake Total 0 Output Total 600 500 Balance -600 -500 Lyle Results Last 24 Hours: Microbiology 08/27/18 18:20 Streptococcus pneumoniae Antigen (M - Final Urine 08/27/18 16:55 Aerobic Blood Culture - Preliminary Blood - Venous - Lab Draw NO GROWTH AFTER 2 DAYS Anaerobic Blood Culture - Preliminary NO GROWTH AFTER 2 DAYS 08/27/18 16:45 Aerobic Blood Culture - Preliminary Blood - Venous NO GROWTH AFTER 2 DAYS Anaerobic Blood Culture - Preliminary NO GROWTH AFTER 2 DAYS 08/27/18 18:20 Urine Culture - Final Urine, Voided Escherichia Coli Med Orders - Current: Current Medications Acetaminophen (Tylenol) 650 mg RECTAL Q6H PRN PRN Reason: Pain/Fever Albuterol (Proventil Neb Soln) 2.5 mg NEB Q4HRRT PRN PRN Reason: Shortness of Breath Latanoprost (Xalatan 0.005% Ophth Soln) 0 ml EYEBOTH BEDTIME [place] Last Admin: 08/29/18 21:06 Dose: Not Given Lorazepam (Ativan) 0.5 mg IVPUSH Q8H PRN PRN Reason: Agitation Miscellaneous Information (Remove Patch) 1 ea TRDERM Q72H PRN PRN Reason: IF USED Morphine Sulfate (Morphine 10 Mg/0.5 Ml Oral Syringe) 5 mg SL Q4H PRN PRN Reason: Pain (moderate 4-6) Scopolamine (Transderm-Scop) 1.5 mg TRDERM Q72H PRN PRN Reason: Nausea/Vomiting Sodium Chloride (Saline Flush) 10 ml FLUSH ASDIRECTED PRN PRN Reason: Keep Vein Open Last Admin: 08/27/18 16:48 Dose: 10 ml Discontinued Medications Acetaminophen (Tylenol) 650 mg PO Q6H PRN PRN Reason: Pain/Fever Albuterol/Ipratropium (Duoneb 3.0-0.5 Mg/3 Ml) 3 ml NEB QIDRT [facility] Last Admin: 08/29/18 06:28 Dose: Not Given Amantadine HCl (Symmetrel 50 Mg/5 Ml Soln) 100 mg PO Q12H [facility] Last Admin: 08/28/18 09:53 Dose: 100 mg Artificial Tears (Refresh Liquigel 1%) 0 ml EYEBOTH TID [facility] Last Admin: 08/28/18 15:19 Dose: 1 drop Aspirin (Halfprin) 81 mg PO DAILY [facility] Last Admin: 08/28/18 10:36 Dose: Not Given Enoxaparin Sodium (Lovenox) 40 mg SUBCUT Q24H [facility] Last Admin: 08/27/18 20:56 Dose: 40 mg Famotidine (Pepcid) 20 mg IVPUSH BID [facility] Last Admin: 08/28/18 10:36 Dose: 20 mg Hydralazine HCl (Apresoline) 20 mg IVPUSH Q6H PRN PRN Reason: Hypertension Sodium Chloride (Normal Saline) 1,000 mls @ 999 mls/hr IV ONETIME ONE Stop: 08/27/18 17:26 Last Admin: 08/27/18 16:45 Dose: 999 mls/hr Ceftriaxone Sodium 2 gm/ (Sodium Chloride) 100 mls @ 200 mls/hr IV NOW STA Stop: 08/27/18 17:55 Last Admin: 08/27/18 18:16 Dose: 200 mls/hr Sodium Chloride (Normal Saline) 1,000 mls @ 125 mls/hr IV ONETIME ONE Stop: 08/28/18 02:14 Last Admin: 08/27/18 20:56 Dose: Not Given Sodium Chloride (Normal Saline) 1,000 mls @ 999 mls/hr IV ONETIME ONE Stop: 08/27/18 19:49 Last Admin: 08/27/18 19:01 Dose: 999 mls/hr Azithromycin 500 mg/ Sodium (Chloride) 250 mls @ 250 mls/hr IV Q24H [facility] Last Admin: 08/27/18 23:37 Dose: 250 mls/hr Ceftriaxone Sodium 2 gm/ (Sodium Chloride) 100 mls @ 200 mls/hr IV Q24H [facility] Last Admin: 08/28/18 18:25 Dose: Not Given Sodium Chloride (Normal Saline) 1,000 mls @ 150 mls/hr IV ASDIRECTED [facility] Stop: 08/28/18 05:00 Last Admin: 08/28/18 03:29 Dose: 150 mls/hr Sodium Chloride (Normal Saline) 1,000 mls @ 75 mls/hr IV ASDIRECTED [facility] Last Admin: 08/28/18 05:34 Dose: 75 mls/hr Dextrose/Sodium Chloride (Dextrose 5%-Normal Saline) 1,000 mls @ 100 mls/hr IV ASDIRECTED [facility] Last Admin: 08/28/18 10:37 Dose: 100 mls/hr Metoprolol Succinate (Toprol Xl) 50 mg PO DAILY [facility] Metoprolol Succinate (Toprol Xl) 25 mg PO DAILY [facility] Last Admin: 08/28/18 10:37 Dose: Not Given Metoprolol Tartrate (Lopressor) 5 mg IVPUSH Q4H PRN PRN Reason: Tachycardia Morphine Sulfate (Morphine) 2 mg IVPUSH ONETIME ONE Stop: 08/29/18 05:16 Last Admin: 08/29/18 05:25 Dose: 2 mg Morphine Sulfate (Morphine Sulfate) 4 mg IV Q2H PRN PRN Reason: Pain Last Admin: 08/30/18 10:27 Dose: 4 mg Morphine Sulfate (Morphine) 2 mg IVPUSH Q4H PRN PRN Reason: Pain (moderate 4-6) Last Admin: 08/30/18 08:19 Dose: 2 mg Morphine Sulfate (Morphine 10 Mg/0.5 Ml Oral Syringe) 5 mg SL Q4H PRN PRN Reason: Pain (moderate 4-6) Ondansetron HCl (Zofran) 4 mg IVPUSH ONETIME ONE Stop: 08/27/18 16:33 Last Admin: 08/27/18 16:46 Dose: 4 mg Ondansetron HCl (Zofran) 4 mg IVPUSH Q8H PRN PRN Reason: Nausea/Vomiting Timolol Maleate (Timoptic 0.5% Ophth Soln) 0 ml EYEBOTH DAILY [facility] Last Admin: 08/28/18 10:46 Dose: Not Given Timolol Maleate (Timoptic 0.5% Ophth Soln) 0 ml EYEBOTH BEDTIME [place] - Exam General: Alert HEENT: Pupils Equal, Pupils Reactive Neck: Trachea Midline, No JVD Lungs: Decreased Breath Sounds Cardiovascular: Regular Rate, Regular Rhythm GI/Abdominal Exam: Normal Bowel Sounds, Soft, Non-Tender, No Organomegaly, No Distention (Female) Exam: Deferred Back Exam: Normal Inspection Extremities: Normal Inspection, Pedal Edema, Slow Capillary Refill Skin: Warm Neurological: No New Focal Deficit Psy/Mental Status: Alert - Problem List & Annotations (1) Pneumonia SNOMED Code(s): 120659349 Code(s): J18.9 - PNEUMONIA, UNSPECIFIED ORGANISM Status: Acute Current Visit: Yes (2) UTI (urinary tract infection) SNOMED Code(s): 46147789 Code(s): N39.0 - URINARY TRACT INFECTION, SITE NOT SPECIFIED Status: Acute Current Visit: Yes Qualifiers: Urinary tract infection type: site unspecified Hematuria presence: without hematuria Qualified Code(s): N39.0 - Urinary tract infection, site not specified (3) Cervical pain (neck) SNOMED Code(s): 98266388 Code(s): M54.2 - CERVICALGIA Status: Acute Current Visit: No (4) Choking episode SNOMED Code(s): 268525863 Code(s): R09.89 - OTH SYMPTOMS AND SIGNS INVOLVING THE CIRC AND RESP SYSTEMS Status: Acute Current Visit: No (5) Dysphagia SNOMED Code(s): 78357703, 133323571 Code(s): R13.10 - DYSPHAGIA, UNSPECIFIED Status: Acute Current Visit: No Qualifiers: Dysphagia type: unspecified Qualified Code(s): R13.10 - Dysphagia, unspecified (6) Progressive supranuclear palsy SNOMED Code(s): 309540743 Code(s): G23.1 - PROGRESSIVE SUPRANUCLEAR OPHTHALMOPLEGIA Status: Acute Current Visit: Yes - Problem List Review Problem List Initiated/Reviewed/Updated: Yes - My Orders Last 24 Hours: My Active Orders 08/29/18 16:47 LORazepam [Ativan] 0.5 mg IVPUSH Q8H PRN 08/30/18 11:26 Ready for Discharge [RC] PER UNIT ROUTINE 08/30/18 12:50 Morphine [Morphine 10 MG/0.5 ML Oral Syringe] 5 mg SL Q4H PRN - Plan Plan:: Impression: Current treatment will be stopped per family/POA request--new code status: DNR/DNI, Comfort Care RLL infiltrate, received Rocephin, ED; stopped ATB AUTI, stopped ATB Acute mental status change--improved PAIN MGT CHANGE, TRANSFER CANCELLED TODAY Trial SL MSO4 Chronic Progressive Supranuclear Palsy HTN [place] UI Plan: IVF--stopped IV ATBs--stopped NPO Aspiration precautions HOB>45 degrees Nebs--scheduled/prn--stopped Hold oral medication SP--swallow eval--cancelled Consult PT/OT/CM DVT/GI prophylaxis Comfort Care started, DC to SNF date change 08/31/18; diet---> NPO except sips of water
[2018-08-30] MEDS: Morphine 10 MG/0.5 ML Oral Syringe SL PRN ×3 (13:55→22:15)
[2018-08-30] MEDS: Latanoprost 0.005% Ophth Soln 2.5 ML Bottle EYEBOTH SCH (22:06)
[2018-08-31] MEDS: Morphine 10 MG/0.5 ML Oral Syringe SL PRN ×3 (02:19→10:14)
== END 2018-08-31 13:09 | DRG 194 ==
LOC: JD.ED 15:16 → JD.MS 18:51
PROVIDERS: ADMIT Internal Medicine Cardiovascular Disease; ATTEND Internal Medicine Cardiovascular Disease
DX: J18.9 Pneumonia, unspecified organism (principal); N39.0 Urinary tract infection, site not specified; G23.1 Progressive supranuclear ophthalmoplegia [Steele-Richardson-Olszewski]; I10 Essential (primary) hypertension; G47.30 Sleep apnea, unspecified; R32 Unspecified urinary incontinence; G20 Parkinson's disease; M54.2 Cervicalgia; G47.33 Obstructive sleep apnea (adult) (pediatric); R13.10 Dysphagia, unspecified; Z96.653 Presence of artificial knee joint, bilateral; Z66 Do not resuscitate; R11.10 Vomiting, unspecified; R53.1 Weakness; Z91.018 Allergy to other foods; Z79.899 Other long term (current) drug therapy; Z79.82 Long term (current) use of aspirin; Z51.5 Encounter for palliative care
CPT/HCPCS: 36415; 71045; 80053; 81001; 83605; 83735; 85007; 85027; 86140; 86738; 87040 ×2; 87086; 87088; 87186; 87804 ×2; 87899; 93005; 96361; 96365; 96375; 99285; J0696; J2405; J7030; J7040; 51702; 51798; 80048; 85025; 93010; 94640; 94760; 99284; A9270-GY; J0456; J1650; J2270; J3490; J7042; J7050; J7620-GY